=== PATIENT | male | born 1950 | race Caucasian/White ===

== ENCOUNTER → 2017-10-17 | Outpatient (CLI) | payer MEDICARE ==
--- NOTE | 2017-10-17 18:10 | XR ---
EXAMINATION TYPE: XR lumbar spine 2 or 3V DATE OF EXAM: 10/17/2017 COMPARISON: NONE HISTORY: Low back pain TECHNIQUE: 3 views FINDINGS: There are screws fusing anteriorly L5 and S1 vertebra. Vertebra have normal alignment. Ther e is anterior mild spurring. There is no compression fracture. Sacroiliac joints are intact. IMPRESSION: Previous surgery. No fracture seen. Mild spondylotic changes.
== END | disposition home or self-care (01) ==
LOC: RADXRMAIN 17:28
PROVIDERS: ATTEND Internal Medicine
DX: M47.816 Spondylosis without myelopathy or radiculopathy, lumbar region (principal); Z98.890 Other specified postprocedural states
CPT/HCPCS: 72100

== ENCOUNTER 2018-10-18 12:52 | Day surgery (SDC) | payer MEDICARE ==
[2018-10-16 11:05] VITALS: BMI 30.4
[~2018-10-18 12:52] MED LIST: LACTATED RINGERS 1,000 ML IV SCH; LIDOCAINE 1% 20 ML VIAL (10MG/ML) FOR IV START INTRADERMA PRN
[2018-10-18 13:15] VITALS: TEMP 97.1
[2018-10-18] MEDS ORDERED: LIDOCAINE 1% INJ 10MG/ML (20 ML MDV) ONE (13:57)
[2018-10-18] MEDS ORDERED: PROPOFOL 10 MG/ML 20 ML VIAL IV ONE (13:57)
--- NOTE | 2018-10-18 14:17 | P.PCN ---
Date of Procedure: 10/18/18 Procedure(s) Performed: BRIEF HISTORY: Patient is a 68-year-old pleasant white male, scheduled for an elective colonoscopy as a part of evaluation of prior history of colon polyps. Last colonoscopy was 5 years ago. PROCEDURE PERFORMED: Colonoscopy. PREOPERATIVE DIAGNOSIS: History of colon polyps. IV sedation per Anesthesia. PROCEDURE: After informed consent was obtained, the patient, was brought into the endoscopy unit. IV sedation was administered by Anesthesia under continuous monitoring. Digital rectal examination was normal. Initially the Olympus CF-160 flexible video colonoscope was then inserted in the rectum, gradually advanced into the cecum without any difficulty. Careful examination was performed as the scope was gradually being withdrawn. Ileocecal valve and the appendiceal orifice were visualized and appeared normal. Prep was excellent. Mucosa of the cecum, ascending colon, transverse colon, descending colon, sigmoid colon, and rectum appeared normal. Scattered sigmoidal diverticulosis. Retroflexion was performed in the rectum and no lesions were seen. The patient tolerated the procedure well. IMPRESSION: Normal-appearing colon from rectum to cecum with no evidence of colorectal neoplasia. Scattered sigmoid diverticulosis. RECOMMENDATIONS: Findings of this examination were discussed with the patient as well as his family. He was advised to have a repeat surveillance colonoscopy in 5 years from now because of the prior history of colon polyps.
[2018-10-18 14:51] VITALS: RESP 16
[2018-10-18 14:54] VITALS: BP 124/72; PULSE 50
== END 2018-10-18 15:13 | disposition home or self-care (01) ==
LOC: ORWHC2ENDO 12:52
PROVIDERS: ATTEND Internal Medicine Gastroenterology
DX: Z12.11 Encounter for screening for malignant neoplasm of colon (principal); Z86.010 Personal history of colon polyps; K57.30 Diverticulosis of large intestine without perforation or abscess without bleeding; E78.5 Hyperlipidemia, unspecified; G47.33 Obstructive sleep apnea (adult) (pediatric); Z87.891 Personal history of nicotine dependence; F39 Unspecified mood [affective] disorder; K21.9 Gastro-esophageal reflux disease without esophagitis; Z88.0 Allergy status to penicillin; Z79.51 Long term (current) use of inhaled steroids; Z79.899 Other long term (current) drug therapy
CPT/HCPCS: J2001; J2704; G0105; 45378

== ENCOUNTER → 2019-01-29 | Outpatient (CLI) | payer MEDICARE ==
--- NOTE | 2019-01-29 13:54 | XR ---
EXAMINATION TYPE: XR abdomen complete w decub DATE OF EXAM: 01/29/2019 CLINICAL HISTORY: Left upper quadrant pain for 1.5 days with nausea. TECHNIQUE: Supine upright, and left lateral decubitus views of the abdomen are obtained. COMPARISON: CT abdomen and pelvis March 04, 2009 FINDINGS: Scattered gas is seen in non-distended stomach and small bowel loops. Gas and fecal mater ial is seen in non-distended colon. Scattered pelvic phleboliths are present. There is surgical cat e in the lumbosacral junction. Lung bases are clear. No pneumoperitoneum. IMPRESSION: Overall nonobstructive bowel gas pattern.
== END | disposition home or self-care (01) ==
LOC: RADXRMAIN 12:19
PROVIDERS: ATTEND Internal Medicine
DX: K57.80 Diverticulitis of intestine, part unspecified, with perforation and abscess without bleeding (principal)
CPT/HCPCS: 74021

== ENCOUNTER 2019-01-31 17:47 | Inpatient (IN) | payer MEDICARE ==
--- NOTE | 2019-01-31 17:32 | CT ---
EXAMINATION TYPE: CT abdomen pelvis w con DATE OF EXAM: 01/31/2019 COMPARISON: 03/04/2009 HISTORY: abdominal pain, hx of diverticulitis CT DLP: 1307 mGycm Automated exposure control for dose reduction was used. CONTRAST: Performed with IV Contrast, patient injected with 100 mL of Isovue 300. Lung bases are clear. There is no pleural effusion. Heart size is normal. There is no pericardial eff usion. Liver spleen stomach pancreas gallbladder appear normal. Bile ducts are not dilated. There is no adrenal mass. Kidneys show satisfactory contrast opacification. There is no hydronephrosi s. Ureters are not dilated. There is no retroperitoneal adenopathy. Bladder distends smoothly. Prosta te is enlarged and measures 5.8 cm. There is no inguinal hernia. There is extensive fat stranding and wall thickening involving the MID sigmoid colon. There are numer ous sigmoid diverticula. There is disc surgery at L5-S1. There is right-sided L5 laminectomy. Vertebra have normal alignment. There is no compression fracture. Bony pelvis is intact. IMPRESSION: There is evidence of moderate sigmoid diverticulitis. This is a change compared to old exam. There is 2.5 cm area of inflammatory mass inferior to the sigmoid colon consistent with a phlegmon. No draina ble fluid collection.
[2019-01-31] MEDS ORDERED: HYDROmorphone 0.5 MG/0.5 ML SYRINGE IVP STA (18:10)
[2019-01-31] MEDS ORDERED: PANTOPRAZOLE 40 MG/10 ML VIAL IVP STA (18:10)
[2019-01-31] MEDS ORDERED: SODIUM CHLORIDE 0.9% 500 ML 500 ML IV STA (18:10)
[2019-01-31] MEDS ORDERED: SODIUM CHLORIDE 0.9% 1,000 ML IV STA (18:10)
--- NOTE | 2019-01-31 18:15 | ED ---
Abdominal Pain HPI - General Chief Complaint: Abdominal Pain Stated Complaint: Abd.pain-came from Ct Time Seen by Provider: 01/31/19 17:54 Source: patient, RN/MD, RN notes reviewed Mode of arrival: ambulatory Limitations: no limitations - History of Present Illness Initial Comments: This is a 68-year-old male who presents with complaints of lower mid abdominal pain. He currently is being treated outpatient with oral medications for diverticulitis. He is not getting better so his physician sent him here for a CAT scan. CAT scan was performed shows evidence of moderate sigmoid diverticulitis there is a 2.5 cm area of inflammatory mass inferior to the sigmoid colon consistent with a phlegmon no drainable fluid collection noted per the report. Patient does state upon my initial exam of the does have decreased pain about 4/10 compared to his entire pain earlier but does get worse with ambulation with movement. He this time denies any fevers chills nausea vomiting sweats no diarrhea. He does have ALLERGIES to penicillin no other modifying factors MD Complaint: abdominal pain - Related Data Home Medications Medication Instructions Recorded Confirmed ALPRAZolam 0.25 mg PO Q8HR PRN 09/09/13 10/18/18 buPROPion HCL [Bupropion HCl] 100 mg PO QAM 09/09/13 10/18/18 traZODone HCL [traZODone] 150 mg PO HS 09/09/13 10/18/18 Acetaminophen [Tylenol Arthritis] 1,300 mg PO BID 10/16/18 10/18/18 Fluticasone Nasal Mason [Flonase 2 spr EA NOSTRIL DAILY PRN 10/16/18 10/18/18 Nasal Mason] Allergies Allergy/AdvReac Type Severity Reaction Status Date / Time Penicillins Allergy Anaphylaxis Verified 01/31/19 18:34 sunflower seeds Allergy Anaphylaxis Uncoded 01/31/19 18:34 Review of Systems ROS Statement: Those systems with pertinent positive or pertinent negative responses have been documented in the HPI. ROS Other: All systems not noted in ROS Statement are negative. Past Medical History Past Medical History: GERD/Reflux, GI Bleed, Hyperlipidemia, Musculoskeletal Disorder, Sleep Apnea/CPAP/BIPAP Additional Past Medical History / Comment(s): hx of bleeding ulcers-surgical intervention with endoscopy in December 2012 and ICU admission- ulcers attributed to NSAIDS,DJD from. Lumbar to sacral area-pt gets injections. Cellulitis of his left fifth finger-healed History of Any Multi-Drug Resistant Organisms: None Reported Past Surgical History: Back Surgery, Orthopedic Surgery Additional Past Surgical History / Comment(s): 1977- laminectomy, carpal tunnel sx to b/l wrists, rt rotator cuff, right knee surgeryx2,L5-S1 fusion Past Anesthesia/Blood Transfusion Reactions: No Reported Reaction Past Psychological History: Anxiety Smoking Status: Former smoker Past Alcohol Use History: Occasional Past Drug Use History: None Reported - Past Family History Father Family Medical History: No Reported History Mother Family Medical History: No Reported History General Exam - General Exam Comments Initial Comments: This is a well-developed well-nourished awake alert oriented 3 male Limitations: no limitations General appearance: alert, anxious Head exam: Present: atraumatic, normocephalic, normal inspection Eye exam: Present: normal appearance, PERRL, EOMI. Absent: scleral icterus, conjunctival injection, periorbital swelling ENT exam: Present: normal exam, mucous membranes moist Neck exam: Present: normal inspection, full ROM. Absent: tenderness, meningismus, lymphadenopathy Respiratory exam: Present: normal lung sounds bilaterally. Absent: respiratory distress, wheezes, rales, rhonchi, stridor Cardiovascular Exam: Present: regular rate, normal rhythm, normal heart sounds. Absent: systolic murmur, diastolic murmur, rubs, gallop, clicks GI/Abdominal exam: Present: soft, tenderness (Tenderness over the mid lower abdomen no overt guarding or rebound at this time), normal bowel sounds. Absent: distended, guarding, rebound, rigid Extremities exam: Present: normal inspection, full ROM, normal capillary refill. Absent: tenderness, pedal edema, joint swelling, calf tenderness Back exam: Present: normal inspection Neurological exam: Present: alert, oriented X3, CN II-XII intact Psychiatric exam: Present: normal affect, normal mood Skin exam: Present: warm, dry, intact, normal color. Absent: rash Course Vital Signs 01/31/19 17:47 Temperature 98.9 F Pulse Rate 71 Respiratory 18 Rate Blood Pressure 145/91 O2 Sat by Pulse 99 Oximetry Medical Decision Making - Medical Decision Making I did review the imaging there is evidence of 2.5 cm area consistent with a phlegmon though apparently the verbal report could not rule out abscess. I had discussed the case with Dr. Beltrán also with Dr. cooper. Also with . Patient will be admitted place an IV antibiotics. He will be nothing by mouth. - Lab Data Result diagrams: 01/31/19 18:00 Lab Results 01/31/19 Range/Units 18:00 WBC 8.7 (3.8-10.6) k/uL RBC 4.97 (4.30-5.90) m/uL Hgb 16.2 (13.0-17.5) gm/dL Hct 46.4 (39.0-53.0) % MCV 93.5 (80.0-100.0) fL MCH 32.6 (25.0-35.0) pg MCHC 34.9 (31.0-37.0) g/dL RDW 11.9 (11.5-15.5) % Plt Count 205 (150-450) k/uL Neutrophils % 73 % Lymphocytes % 10 % Monocytes % 11 % Eosinophils % 1 % Basophils % 4 % Neutrophils # 6.4 (1.3-7.7) k/uL Lymphocytes # 0.9 L (1.0-4.8) k/uL Monocytes # 0.9 (0-1.0) k/uL Eosinophils # 0.1 (0-0.7) k/uL Basophils # 0.3 H (0-0.2) k/uL Disposition Clinical Impression: Diverticulitis large intestine, Phlegmon, Abdominal pain Disposition: ADMITTED IP TO THIS [facility] Condition: Fair Referrals: Genet Beltrán MD [Primary Care Provider] - 1-2 days
[2019-01-31 18:28] LABS: Basophils # (A) 0.3 k/uL (0-0.2); Basophils % (A) 4 %; Eosinophils # (A) 0.1 k/uL (0-0.7); Eosinophils % (A) 1 %; HCT 46.4 % (39.0-53.0); HGB 16.2 gm/dL (13.0-17.5); Lymphocytes # (A) 0.9 k/uL (1.0-4.8); Lymphocytes % (A) 10 %; MCH 32.6 pg (25.0-35.0); MCHC 34.9 g/dL (31.0-37.0); MCV 93.5 fL (80.0-100.0); Mean Platelet Volume 8.6; Monocytes # (A) 0.9 k/uL (0-1.0); Monocytes % (A) 11 %; Neutrophils # (A) 6.4 k/uL (1.3-7.7); Neutrophils % (A) 73 %; Platelet Count 205 k/uL (150-450); RBC 4.97 m/uL (4.30-5.90); RDW 11.9 % (11.5-15.5); WBC 8.7 k/uL (3.8-10.6)
[2019-01-31] MEDS ORDERED: ONDANSETRON 4 MG/2 ML VIAL IVP PRN (18:38)
[2019-01-31] MEDS ORDERED: NALOXONE 0.4 MG/ML 1 ML VIAL IV PRN (18:38)
[2019-01-31] MEDS ORDERED: LEVOFLOXACIN 750MG-D5W PMX 750 MG in DEXTROSE/WATER 1 150ML.BAG IVPB STA (18:41)
[2019-01-31 19:05] LABS: ALT 24 U/L (4-49); AST 48 U/L (17-59); African American GFR (CKD) >90 (>60 ml/min/1.73 sqM); Albumin 4.4 g/dL (3.5-5.0); Alkaline Phosphatase 83 U/L (38-126); Amylase 74 U/L (30-110); Anion Gap 11 mmol/L; Blood Urea Nitrogen 9 mg/dL (9-20); Calcium 9.7 mg/dL (8.4-10.2); Carbon Dioxide 23 mmol/L (22-30); Chloride 100 mmol/L (98-107); Creatine Kinase 202 U/L (55-170); Glucose 93 mg/dL (74-99); Non-African American GFR(CKD) >90 (>60 ml/min/1.73 sqM); Sodium 134 mmol/L (137-145); Total Bilirubin 1.3 mg/dL (0.2-1.3); Total Protein 8.1 g/dL (6.3-8.2)
[2019-01-31] MEDS: SODIUM CHLORIDE 0.9% 1,000 ML IV SCH (20:13)
[2019-01-31] MEDS: traZODone HCL 50 MG TAB PO SCH (23:11)
[2019-01-31] MEDS: metroNIDAZOLE-NS PMX 500 MG in SALINE 1 100ML.BAG IVPB SCH (23:55)
[2019-02-01] MEDS: HYDROmorphone 0.5 MG/0.5 ML SYRINGE IVP PRN ×3 (00:04→14:21)
[2019-02-01] MEDS: LORazepam 2 MG/ML INJ IV PRN (02:24)
[2019-02-01] MEDS: SODIUM CHLORIDE 0.9% 1,000 ML IV SCH ×3 (03:25→17:34)
[2019-02-01 04:15] LABS: Appearance,Urine Clear (Clear); Bilirubin,Urine Negative (Negative); Blood,Urine Negative (Negative); Color,Urine Yellow; Glucose,Urine (UA) Negative (Negative); Ketones,Urine Trace (Negative); Leukocyte Esterase,Urine Negative (Negative); Nitrite,Urine Negative (Negative); Protein,Urine Negative (Negative); Specific Gravity,Urine 1.021 (1.001-1.035); Urobilinogen,Urine <2.0 mg/dL (<2.0)
[2019-02-01] MEDS: metroNIDAZOLE-NS PMX 500 MG in SALINE 1 100ML.BAG IVPB SCH ×2 (08:50→15:45)
[2019-02-01] MEDS: buPROPion 100 MG TAB PO SCH (08:51)
[2019-02-01] MEDS: PANTOPRAZOLE 40 MG/10 ML VIAL IV SCH (08:51)
[2019-02-01] MEDS ORDERED: NON FORMULARY DRUG (Omeprazole Magnesium [Prilosec Otc] 20 MG) PO SCH (09:00)
--- NOTE | 2019-02-01 12:56 | P.HPIM ---
History of Present Illness H&P Date: 02/01/19 Chief Complaint: abdominal pain this is 68 years old male with past medical history significant for diverticulosis presented to the emergency department with abdominal pain. Patient described abdominal pain started 3 days ago located to the periumbilical area radiating to the lower quadrant left greater than right. Patient felt nauseous did not have any vomiting and denied any fever or chills and presented to the ER where computed tomography scan of the abdomen showed acute diverticulitis with phlegmon. Patient was started on IV antibiotics placed on the surgical floor and the general surgery consult was obtained. Patient stated that his been currently under fair control with the current the IV pain medication at denying nausea vomiting or abdominal pain. The patient stated that his improvement. At least 50% since last night and feels much better than presentation. Patient had the colonoscopy 15 years ago where it was positive for diverticulosis which was in remission until yesterday. The patient denied any weight loss night sweats or low-grade grade fever stated that he's up-to-date on his colonoscopy and had EGD in the past. Patient had a history of chronic back pain and stated that this pain is totally different than before. Patient is still passing flatus had small bowel movement yesterday without blood and stated that it's about the regular consistency for his irregular stool. Patient is denying tobacco alcohol or drug abuse stated that he's retired lives at home independently Review of Systems all 14 systems reviewed and negative except as above Past Medical History Past Medical History: GERD/Reflux, GI Bleed, Hyperlipidemia, Musculoskeletal Disorder, Sleep Apnea/CPAP/BIPAP Additional Past Medical History / Comment(s): hx of bleeding ulcers-surgical intervention with endoscopy in December 2012 and ICU admission- ulcers attr ibuted to NSAIDS,DJD from. Lumbar to sacral area-pt gets injections. Cellulitis of his left fifth finger-healed History of Any Multi-Drug Resistant Organisms: None Reported Past Surgical History: Back Surgery, Orthopedic Surgery Additional Past Surgical History / Comment(s): 1977- laminectomy, carpal tunnel sx to b/l wrists, rt rotator cuff, right knee surgeryx2,L5-S1 fusion Past Anesthesia/Blood Transfusion Reactions: No Reported Reaction Past Psychological History: Anxiety Additional Psychological History / Comment(s): Patient is lives with family home with his . 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 He does not have international travel as of late. No animals in the. home at this point in time. They do travel to [place] on an ongoing basis to visit their grandchildren. Stopped smoking 30 years ago. No history of her occasional drug use is related at this time. Smoking Status: Former smoker Past Alcohol Use History: Occasional Additional Past Alcohol Use History / Comment(s): quit smoking approx 38 yrs a go, smoked approx 8 yrs Past Drug Use History: None Reported - Past Family History Father Family Medical History: No Reported History Mother Family Medical History: No Reported History Medications and Allergies Home Medications Medication Instructions Recorded Confirmed Type ALPRAZolam 0.25 mg PO DAILY PRN 09/09/13 01/31/19 History buPROPion HCL [Bupropion HCl] 100 mg PO DAILY 09/09/13 01/31/19 History traZODone HCL [traZODone] 150 mg PO HS 09/09/13 01/31/19 History Ciprofloxacin HCl [Cipro] 500 mg PO BID 01/31/19 01/31/19 History Omeprazole Magnesium [PriLOSEC OTC] 20 mg PO DAILY 01/31/19 01/31/19 History metroNIDAZOLE [Flagyl] 500 mg PO TID 01/31/19 01/31/19 History Allergies Allergy/AdvReac Type Severity Reaction Status Date / Time Penicillins Allergy Anaphylaxis Verified 01/31/19 18:34 sunflower seeds Allergy Anaphylaxis Uncoded 01/31/19 18:34 Physical Exam Vitals: Vital Signs Temp Pulse Pulse Resp BP BP Pulse Ox 02/01/19 05:10 97.6 F 81 16 146/78 97 02/01/19 03:46 96.9 F L 01/31/19 21:08 100.2 F H 72 16 129/86 98 01/31/19 20:19 98.7 F 61 16 126/79 96 01/31/19 17:47 98.9 F 71 18 145/91 99 Intake and Output 01/31/19 02/01/19 02/01/19 22:59 06:59 14:59 Other: # Voids 2 1 Weight 89.358 kg Gen.: in stated age, no acute distress Heart: Normal S1-S2 Lungs: Clear to auscultation bilaterally Abdomen: Soft, positive for generalized tenderness worse in the periumbilical area without guarding and mild rebound Skin: No new rash Psych: Alert and oriented 3 Neuro: No focal deficit Results CBC & Chem 7: 01/31/19 18:00 01/31/19 18:00 Labs: Abnormal Lab Results - Last 24 Hours (Table) 01/31/19 01/31/19 02/01/19 Range/Units 18:00 18:00 03:30 Lymphocytes # 0.9 L (1.0-4.8) k/uL Basophils # 0.3 H (0-0.2) k/uL Sodium 134 L (137-145) mmol/L Creatine Kinase 202 H (55-170) U/L Urine Ketones Trace H (Negative) Thrombosis Risk Factor Assmnt - Choose All That Apply Each Factor Represents 1 point: Age 41-60 years Each Risk Factor Represents 2 Points: Age 61-74 years Other congenital or acquired thrombophilia - If yes, enter type in comment: No Thrombosis Risk Factor Assessment Total Risk Factor Score: 3 Thrombosis Risk Factor Assessment Level: Moderate Risk Assessment and Plan Assessment: 1. Acute diverticulitis with phlegmon. 2. Intractable abdominal pain with nausea no vomiting. 3. Hyponatremia. 4. Anxiety. 5. Chronic back pain. 6. GERD. Would continue current antibiotics, keep patient's nothing by mouth except for medication, anxiety medication discussed with the patient, we'll wait on surgery evaluation, increase diet per surgery recommendation, consider repeat study based on clinical progress. Plan discussed with patient and details
--- NOTE | 2019-02-01 14:27 | P.GSCN ---
History of Present Illness Consult date: 02/01/19 History of present illness: This is a 68-year-old male presents with a chief complaint of left lower quadrant abdominal pain. He had a normal bowel movement yesterday. He denies any blood in his stool. He denies any nausea vomiting. He's never had pain like this before. A computed tomography scan performed which was consistent with acute diverticulitis with phlegmon no drainable abscess. He states he's never had an episode of diverticulitis before in the past. He recently had a colonoscopy a little over a year ago with Dr. Pratt. He states that that revealed only diverticulosis at the time. He denies any fevers or chills. He states that his pain has slightly improved since his admission. It is controlled with pain medication at this time. Past Medical History Past Medical History: GERD/Reflux, GI Bleed, Hyperlipidemia, Musculoskeletal Disorder, Sleep Apnea/CPAP/BIPAP Additional Past Medical History / Comment(s): hx of bleeding ulcers-surgical intervention with endoscopy in December 2012 and ICU admission- ulcers attributed to NSAIDS,DJD from. Lumbar to sacral area-pt gets injections. Cellulitis of his left fifth finger-healed History of Any Multi-Drug Resistant Organisms: None Reported Past Surgical History: Back Surgery, Orthopedic Surgery Additional Past Surgical History / Comment(s): 1977- laminectomy, carpal tunnel sx to b/l wrists, rt rotator cuff, right knee surgeryx2,L5-S1 fusion Past Anesthesia/Blood Transfusion Reactions: No Reported Reaction Past Psychological History: Anxiety Additional Psychological History / Comment(s): Patient is lives with family home with his . 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 He does not have international travel as of late. No animals in the. home at this point in time. They do travel to [place] on an ongoing basis to visit their grandchildren. Stopped smoking 30 years ago. No history of her occasional drug use is related at this time. Smoking Status: Former smoker Past Alcohol Use History: Occasional Additional Past Alcohol Use History / Comment(s): quit smoking approx 38 yrs ago, smoked approx 8 yrs Past Drug Use History: None Reported - Past Family History Father Family Medical History: No Reported History Mother Family Medical History: No Reported History Medications and Allergies Home Medications Medication Instructions Recorded Confirmed Type ALPRAZolam 0.25 mg PO DAILY PRN 09/09/13 01/31/19 History buPROPion HCL [Bupropion HCl] 100 mg PO DAILY 09/09/13 01/31/19 History traZODone HCL [traZODone] 150 mg PO HS 09/09/13 01/31/19 History Ciprofloxacin HCl [Cipro] 500 mg PO BID 01/31/19 01/31/19 History Omeprazole Magnesium [PriLOSEC OTC] 20 mg PO DAILY 01/31/19 01/31/19 History metroNIDAZOLE [Flagyl] 500 mg PO TID 01/31/19 01/31/19 History Allergies Allergy/AdvReac Type Severity Reaction Status Date / Time Penicillins Allergy Anaphylaxis Verified 01/31/19 18:34 sunflower seeds Allergy Anaphylaxis Uncoded 01/31/19 18:34 Surgical - Exam Osteopathic Statement: *. No significant issues noted on an osteopathic structural exam other than those noted in the History and Physical/Consult. Vital Signs Temp Pulse Resp BP Pulse Ox 98.9 F 71 18 145/91 99 01/31/19 17:47 01/31/19 17:47 01/31/19 17:47 01/31/19 17:47 01/31/19 17:47 - General well developed, well nourished, no distress - Eyes PERRL - Neck trachea midline - Cardiovascular Rhythm: regular - Abdomen mild tenderness palpation in the left lower quadrant no rebound rigidity or guarding Abdomen: soft - Neurologic normal coordination, normal sensation - Psychiatric oriented to time, oriented to person, oriented to place Results - Labs 01/31/19 18:00 01/31/19 18:00 Abnormal Lab Results - Last 24 Hours (Table) 01/31/19 01/31/19 02/01/19 Range/Units 18:00 18:00 03:30 Lymphocytes # 0.9 L (1.0-4.8) k/uL Basophils # 0.3 H (0-0.2) k/uL Sodium 134 L (137-145) mmol/L Creatine Kinase 202 H (55-170) U/L Urine Ketones Trace H (Negative) Diabetes panel 01/31/19 Range/Units 18:00 Sodium 134 L (137-145) mmol/L Potassium 5.0 (3.5-5.1) mmol/L Chloride 100 (98-107) mmol/L Carbon Dioxide 23 (22-30) mmol/L BUN 9 (9-20) mg/dL Creatinine 0.83 (0.66-1.25) mg/dL Glucose 93 (74-99) mg/dL Calcium 9.7 (8.4-10.2) mg/dL AST 48 (17-59) U/L ALT 24 (4-49) U/L Alkaline Phosphatase 83 (38-126) U/L Total Protein 8.1 (6.3-8.2) g/dL Albumin 4.4 (3.5-5.0) g/dL Calcium panel 01/31/19 Range/Units 18:00 Calcium 9.7 (8.4-10.2) mg/dL Albumin 4.4 (3.5-5.0) g/dL Pituitary panel 01/31/19 Range/Units 18:00 Sodium 134 L (137-145) mmol/L Potassium 5.0 (3.5-5.1) mmol/L Chloride 100 (98-107) mmol/L Carbon Dioxide 23 (22-30) mmol/L BUN 9 (9-20) mg/dL Creatinine 0.83 (0.66-1.25) mg/dL Glucose 93 (74-99) mg/dL Calcium 9.7 (8.4-10.2) mg/dL Adrenal panel 01/31/19 Range/Units 18:00 Sodium 134 L (137-145) mmol/L Potassium 5.0 (3.5-5.1) mmol/L Chloride 100 (98-107) mmol/L Carbon Dioxide 23 (22-30) mmol/L BUN 9 (9-20) mg/dL Creatinine 0.83 (0.66-1.25) mg/dL Glucose 93 (74-99) mg/dL Calcium 9.7 (8.4-10.2) mg/dL Total Bilirubin 1.3 (0.2-1.3) mg/dL AST 48 (17-59) U/L ALT 24 (4-49) U/L Alkaline Phosphatase 83 (38-126) U/L Total Protein 8.1 (6.3-8.2) g/dL Albumin 4.4 (3.5-5.0) g/dL Assessment and Plan Assessment: acute diverticulitis Plan: patient does still have tenderness in his left lower quadrant. I recommend continuing bowel rest with nothing by mouth and IV antibiotics at this time. As patient continues to clinically improve diet can be advanced to clear liquids when his pain resolves. He did have a significant phlegmon however there was no abscess at this time. If the patient has worsening abdominal pain or increasing white count and fevers we could consider repeat computed tomography scan in several days to check for abscess formation. No plans for acute surgical intervention at this time.
[2019-02-01] MEDS: LEVOFLOXACIN 750MG-D5W PMX 750 MG in DEXTROSE/WATER 1 150ML.BAG IVPB SCH (17:31)
[2019-02-01] MEDS: traZODone HCL 50 MG TAB PO SCH (21:14)
[2019-02-01] MEDS: ENOXAPARIN 40 MG/0.4 ML SYRINGE SQ SCH (21:14)
[2019-02-02] MEDS: metroNIDAZOLE-NS PMX 500 MG in SALINE 1 100ML.BAG IVPB SCH ×4 (00:18→23:38)
[2019-02-02] MEDS: SODIUM CHLORIDE 0.9% 1,000 ML IV SCH ×3 (03:03→19:00)
[2019-02-02 07:33] LABS: Basophils % (A) 1 %; Eosinophils # (A) 0.1 k/uL (0-0.7); Eosinophils % (A) 3 %; HCT 38.9 % (39.0-53.0); HGB 13.3 gm/dL (13.0-17.5); Lymphocytes # (A) 0.9 k/uL (1.0-4.8); Lymphocytes % (A) 22 %; MCH 32.3 pg (25.0-35.0); MCHC 34.3 g/dL (31.0-37.0); MCV 94.4 fL (80.0-100.0); Mean Platelet Volume 8.2; Monocytes # (A) 0.5 k/uL (0-1.0); Monocytes % (A) 12 %; Neutrophils # (A) 2.5 k/uL (1.3-7.7); Neutrophils % (A) 59 %; Platelet Count 191 k/uL (150-450); RBC 4.12 m/uL (4.30-5.90); RDW 11.6 % (11.5-15.5); WBC 4.2 k/uL (3.8-10.6)
[2019-02-02 07:42] LABS: ALT 15 U/L (4-49); AST 27 U/L (17-59); African American GFR (CKD) >90 (>60 ml/min/1.73 sqM); Albumin 3.1 g/dL (3.5-5.0); Alkaline Phosphatase 58 U/L (38-126); Anion Gap 8 mmol/L; Blood Urea Nitrogen 11 mg/dL (9-20); Calcium 8.7 mg/dL (8.4-10.2); Carbon Dioxide 21 mmol/L (22-30); Chloride 107 mmol/L (98-107); Glucose 71 mg/dL (74-99); Non-African American GFR(CKD) >90 (>60 ml/min/1.73 sqM); Potassium 4.6 mmol/L (3.5-5.1); Sodium 136 mmol/L (137-145); Total Bilirubin 0.6 mg/dL (0.2-1.3); Total Protein 6.1 g/dL (6.3-8.2)
[2019-02-02] MEDS: PANTOPRAZOLE 40 MG/10 ML VIAL IV SCH (09:04)
[2019-02-02] MEDS: buPROPion 100 MG TAB PO SCH (09:04)
--- NOTE | 2019-02-02 12:11 | P.PN ---
Subjective Progress Note Date: 02/02/19 Principal diagnosis: diverticulitis patient continued to be hemodynamic a stable no major events reported by nursing staff. Patient is denying chest pain shortness breath nausea vomiting dumping dizziness lightheaded this or blurry vision. Patient reported resolution of his pain and stated that it's mild when pushing on the periumbilical area but no further need for pain medication requested by nursing staff. The patient is still nothing by mouth in no acute distress Objective - Vital Signs Vital signs: Vital Signs Temp 97.9 F 02/02/19 07:00 Pulse 75 02/02/19 07:00 Resp 18 02/02/19 07:00 BP 126/64 02/02/19 07:00 Pulse Ox 98 02/02/19 07:00 Intake & Output 02/01/19 02/02/19 02/02/19 18:59 06:59 18:59 Intake Total 0 Balance 0 Intake: Oral 0 Other: # Voids 3 2 - Exam Gen.: in stated age, no acute distress Heart: Normal S1-S2 Lungs: Clear to auscultation bilaterally Abdomen: Soft, improved tenderness in all quadrants still have some tenderness in the periumbilical and left lower quadrant with deep palpation, positive bowel sounds in all 4 quadrant no guarding or rebound Skin: No new rash Psych: Alert and oriented 3 Neuro: No focal deficit - Labs CBC & Chem 7: 02/02/19 06:50 02/02/19 06:50 Labs: Abnormal Lab Results - Last 24 Hours (Table) 02/02/19 02/02/19 Range/Units 06:50 06:50 RBC 4.12 L (4.30-5.90) m/uL Hct 38.9 L (39.0-53.0) % Lymphocytes # 0.9 L (1.0-4.8) k/uL Sodium 136 L (137-145) mmol/L Carbon Dioxide 21 L (22-30) mmol/L Glucose 71 L (74-99) mg/dL Total Protein 6.1 L (6.3-8.2) g/dL Albumin 3.1 L (3.5-5.0) g/dL Microbiology - Last 24 Hours (Table) 01/31/19 18:34 Blood Culture - Preliminary Blood No Growth after 24 hours Assessment and Plan Assessment: 1. Acute diverticulitis with phlegmon. 2. Intractable abdominal pain with nausea no vomiting. 3. Hyponatremia. 4. Anxiety. 5. Chronic back pain. 6. GERD. patient seems to be improving since yesterday. No pain medication administered in the last 12 hours. Patient is feeding hungry and I would like to introduce clear liquid diet. I would like to wait on general surgery evaluation regarding increasing his diet slowly and gradually. Repeat his electrolytes in the morning as his sodium 136 today area did continue gentle hydration with normal saline. Continue DVT prophylaxis. Continue current antibiotics. Discharge planning based on clinical progress
--- NOTE | 2019-02-02 14:31 | P.PN ---
Subjective Progress Note Date: 02/02/19 patient seen and examined. He's feeling much better today. His small bowel movement. He is tolerating his clears. No nausea vomiting no fevers chills Objective - Vital Signs Vital signs: Vital Signs Temp 97.9 F 02/02/19 07:00 Pulse 75 02/02/19 07:00 Resp 18 02/02/19 07:00 BP 126/64 02/02/19 07:00 Pulse Ox 98 02/02/19 07:00 Intake & Output 02/01/19 02/02/19 02/02/19 18:59 06:59 18:59 Intake Total 0 Balance 0 Intake: Oral 0 Other: # Voids 3 2 - Constitutional General appearance: Present: cooperative - Respiratory Details: nonlabored - Cardiovascular Rhythm: regular - Gastrointestinal Gastrointestinal Comment(s): S/NT/ND - Psychiatric Psychiatric: Present: A&O x's 3 - Labs CBC & Chem 7: 02/02/19 06:50 02/02/19 06:50 Labs: Abnormal Lab Results - Last 24 Hours (Table) 02/02/19 02/02/19 Range/Units 06:50 06:50 RBC 4.12 L (4.30-5.90) m/uL Hct 38.9 L (39.0-53.0) % Lymphocytes # 0.9 L (1.0-4.8) k/uL Sodium 136 L (137-145) mmol/L Carbon Dioxide 21 L (22-30) mmol/L Glucose 71 L (74-99) mg/dL Total Protein 6.1 L (6.3-8.2) g/dL Albumin 3.1 L (3.5-5.0) g/dL Microbiology - Last 24 Hours (Table) 01/31/19 18:34 Blood Culture - Preliminary Blood No Growth after 24 hours Assessment and Plan Assessment: acute diverticulitis Plan: continue IV antibiotics and clear liquid diet today. If patient continues to clinically improve he may advance to a soft diet tomorrow. No plans for acute surgical intervention
[2019-02-02] MEDS: LEVOFLOXACIN 750MG-D5W PMX 750 MG in DEXTROSE/WATER 1 150ML.BAG IVPB SCH (18:17)
[2019-02-02] MEDS: traZODone HCL 50 MG TAB PO SCH (22:00)
[2019-02-02] MEDS: ENOXAPARIN 40 MG/0.4 ML SYRINGE SQ SCH (22:00)
[2019-02-02] MEDS: LORazepam 2 MG/ML INJ IV PRN (22:05)
[2019-02-03] MEDS: SODIUM CHLORIDE 0.9% 1,000 ML IV SCH ×3 (03:09→17:45)
[2019-02-03 05:45] VITALS: RESP 18
[2019-02-03] MEDS: buPROPion 100 MG TAB PO SCH (08:57)
[2019-02-03] MEDS: PANTOPRAZOLE 40 MG/10 ML VIAL IV SCH (08:57)
[2019-02-03] MEDS: metroNIDAZOLE-NS PMX 500 MG in SALINE 1 100ML.BAG IVPB SCH ×3 (08:59→23:01)
[2019-02-03] MEDS ORDERED: ALPRAZolam 0.5 MG TAB PO PRN (15:13)
--- NOTE | 2019-02-03 16:12 | P.PN ---
Subjective Progress Note Date: 02/03/19 this is 68 years old male with past medical history significant for diverticulosis presented to the emergency department with abdominal pain. Patient described abdominal pain started 3 days ago located to the periumbilical area radiating to the lower quadrant left greater than right. Patient felt nauseous did not have any vomiting and denied any fever or chills and presented to the ER where computed tomography scan of the abdomen showed acute diverticulitis with phlegmon. Patient was started on IV antibiotics placed on the surgical floor and the general surgery consult was obtained. Patient stated that his been currently under fair control with the current the IV pain medication at denying nausea vomiting or abdominal pain. The patient stated that his improvement. At least 50% since last night and feels much better than presentation. Patient had the colonoscopy 15 years ago where it was positive for diverticulosis which was in remission until yesterday. The patient denied any weight loss night sweats or low-grade grade fever stated that he's up-to-date on his colonoscopy and had EGD in the past. Patient had a history of chronic back pain and stated that this pain is totally different than before. Patient is still passing flatus had small bowel movement yesterday without blood and stated that it's about the regular consistency for his irregular stool. Patient is denying tobacco alcohol or drug abuse stated that he's retired lives at home independently 02/03: Patient is doing better with abdominal pain, had increase in diet today which consisted of sandwich, patient felt bloated, no abdominal discomfort or pain, small bowel movement, no nausea, IV antibiotic still ongoing, Dr. cooper is on standby for general surgery with the plans for surgical intervention, patient is on IV metronidazole and by mouth Levaquin. When anticipating discharge in the morning should he continue to progress and improve. he has Cipro and Flagylfrom prior to admission which we can continue post discharge, he only had 2 doses of these antibiotics prior to admission.no leukocytosis no abnormal chemistries Objective - Vital Signs Vital signs: Vital Signs Temp 98.3 F 02/03/19 12:23 Pulse 62 02/03/19 12:23 Resp 18 02/03/19 12:23 BP 130/84 02/03/19 12:23 Pulse Ox 97 02/03/19 12:23 Intake & Output 02/02/19 02/03/19 02/03/19 18:59 06:59 18:59 Intake Total 540 1180 Balance 540 1180 Intake: Oral 540 1180 Other: Voiding Method Toilet # Voids 3 2 1 - Constitutional General appearance: Present: cooperative, no acute distress - EENT Eyes: Present: anicteric sclerae, EOMI, PERRLA, dentition normal, normal appearance ENT: Present: NA/AT, normal oropharynx - Neck Neck: Present: normal ROM - Respiratory Respiratory: bilateral: CTA, negative: diminished, dullness, rales, rhonchi - Cardiovascular Rhythm: regular Heart sounds: normal: S1, S2 Abnormal Heart Sounds: Absent: systolic murmur, diastolic murmur, rub, S3 Gallop, S4 Gallop, click, other - Gastrointestinal General gastrointestinal: Present: normal bowel sounds, soft - Integumentary Integumentary: Present: decreased turgor, normal - Neurologic Neurologic: Present: CNII-XII intact - Musculoskeletal Musculoskeletal: Present: gait normal, strength equal bilaterally - Psychiatric Psychiatric: Present: A&O x's 3, appropriate affect, intact judgment & insight - Labs CBC & Chem 7: 02/02/19 06:50 02/02/19 06:50 Labs: Microbiology - Last 24 Hours (Table) 01/31/19 18:34 Blood Culture - Preliminary Blood No Growth after 48 hours Assessment and Plan Plan: . Acute diverticulitis with phlegmon.clinically improving 2. Intractable abdominal pain with nausea no vomiting. 3. Hyponatremia resolved. 4. Anxiety. 5. Chronic back pain. 6. GERD. 7. Mild hypoalbuminemia, most likely secondary to nutritional deficit secondary to illness Would continue current antibiotics, advance diet as tolerated, anticipate discharge in the morning, no surgical intervention currently needed, low residue diet for the next 2 weeks, thereafter diverticular diet high fiber.
[2019-02-03] MEDS ORDERED: LEVOFLOXACIN 750 MG TAB PO SCH (18:00)
--- NOTE | 2019-02-03 19:12 | P.PN ---
Subjective Progress Note Date: 02/03/19 patient seen and examined. He's feeling much better today. having liquid bowel movements. He is tolerating his diet. No nausea vomiting no fevers chills Objective - Vital Signs Vital signs: Vital Signs Temp 98.3 F 02/03/19 12:23 Pulse 62 02/03/19 12:23 Resp 18 02/03/19 12:23 BP 130/84 02/03/19 12:23 Pulse Ox 97 02/03/19 12:23 Intake & Output 02/03/19 02/03/19 02/04/19 06:59 18:59 06:59 Intake Total 1580 Balance 1580 Intake: Oral 1580 Other: Voiding Method Toilet # Voids 2 2 - Constitutional General appearance: Present: cooperative - Respiratory Details: nonlabored - Cardiovascular Rhythm: regular - Gastrointestinal Gastrointestinal Comment(s): soft nontender nondistended - Psychiatric Psychiatric: Present: A&O x's 3 - Labs CBC & Chem 7: 02/02/19 06:50 02/02/19 06:50 Labs: Microbiology - Last 24 Hours (Table) 01/31/19 18:34 Blood Culture - Preliminary Blood No Growth after 48 hours Assessment and Plan Assessment: acute diverticulitis Plan: patient is feeling much better today. He is having liquid bowel movements. He is stable for discharge home tomorrow on oral antibiotics from surgical standpo int.he's had a recent colonoscopy which was normal. He may follow-up as needed if he continues to have recurrent diverticulitis.
[2019-02-03] MEDS: ENOXAPARIN 40 MG/0.4 ML SYRINGE SQ SCH (21:01)
[2019-02-03] MEDS: traZODone HCL 50 MG TAB PO SCH (21:01)
[2019-02-04] MEDS: LORazepam 2 MG/ML INJ IV PRN (02:44)
[2019-02-04] MEDS: SODIUM CHLORIDE 0.9% 1,000 ML IV SCH (03:27)
[2019-02-04 06:27] VITALS: BP 112/69; PULSE 65; TEMP 97.7
[2019-02-04] MEDS ORDERED: PANTOPRAZOLE 40 MG TABLET PO SCH (07:30)
[2019-02-04] MEDS: buPROPion 100 MG TAB PO SCH (08:02)
[2019-02-04] MEDS: metroNIDAZOLE-NS PMX 500 MG in SALINE 1 100ML.BAG IVPB SCH (08:02)
[2019-02-04 11:53] VITALS: BMI 29.9
--- NOTE | 2019-02-04 16:01 | P.DS ---
Providers Date of admission: 01/31/19 18:38 Expected date of discharge: 02/04/19 Attending physician: Denisse York Consults: 01/31/19 18:39 Consult Physician Routine Consulting Provider: Govind Reynoso Consult Reason/Comments: Diverticulitis with phlegmon Do you want consulting provider notified?: Already Contacted Primary care physician: [facility] Course: this is 68 years old male with past medical history significant for diverticulosis presented to the emergency department with abdominal pain. Patient described abdominal pain started 3 days ago located to the periumbilical area radiating to the lower quadrant left greater than right. Patient felt nauseous did not have any vomiting and denied any fever or chills and presented to the ER where computed tomography scan of the abdomen showed acute diverticulitis with phlegmon. Patient was started on IV antibiotics placed on the surgical floor and the general surgery consult was obtained. Patient stated that his been currently under fair control with the current the IV pain medication at denying nausea vomiting or abdominal pain. The patient stated that his improvement. At least 50% since last night and feels much better than presentation. Patient had the colonoscopy 15 years ago where it was positive for diverticulosis which was in remission until yesterday. The patient denied any weight loss night sweats or low-grade grade fever stated that he's up-to-date on his colonoscopy and had EGD in the past. Patient had a history of chronic back pain and stated that this pain is totally different than before. Patient is still passing flatus had small bowel movement yesterday without blood and stated that it's about the regular consistency for his irregular stool. Patient is denying tobacco alcohol or drug abuse stated that he's retired lives at home independently 02/03: Patient is doing better with abdominal pain, had increase in diet today which consisted of sandwich, patient felt bloated, no abdominal discomfort or pain, small bowel movement, no nausea, IV antibiotic still ongoing, Dr. reynoso is on standby for general surgery with the plans for surgical intervention, patient is on IV metronidazole and by mouth Levaquin. When anticipating discharge in the morning should he continue to progress and improve. he has Cipro and Flagylfrom prior to admission which we can continue post discharge, he only had 2 doses of these antibiotics prior to admission.no leukocytosis no abnormal chemistries 02/04: Abdominal pain did not come back, tolerating low-residue diet, dietitian consulted for home diverticular diet, patient denies any fever no chills, no abdominal cramps no melena and hematochezia, stable for discharge today, patient was counseled, no new problems GI-[facility] today. Hemoglobin 13.3 WBC count 4.2 liver function tests normal urinalysis normal final diagnosis Plan: .1 Acute diverticulitis with phlegmon. improved no perforation. Patient to start Cipro and Flagyl, to complete treatment 10 days on 02/10/2019 2. Intractable abdominal pain with nausea no vomiting. Improved 3. Hyponatremia resolved. 4. Anxiety. 5. Chronic back pain. 6. GERD. 7. Mild hypoalbuminemia, most likely secondary to nutritional deficit secondary to illness Discharge Medication List ALPRAZolam 0.25 mg PO DAILY PRN 09/09/13 [History] buPROPion HCL [Bupropion HCl] 100 mg PO DAILY 09/09/13 [History] traZODone HCL [traZODone] 150 mg PO HS 09/09/13 [History] Ciprofloxacin HCl [Cipro] 500 mg PO BID 01/31/19 [History] Omeprazole Magnesium [PriLOSEC OTC] 20 mg PO DAILY 01/31/19 [History] metroNIDAZOLE [Flagyl] 500 mg PO TID 01/31/19 [History] Patient Condition at Discharge: Fair Plan - Discharge Summary Discharge Rx Participant: No New Discharge Prescriptions: Continue traZODone HCL [traZODone] 150 mg PO HS ALPRAZolam 0.25 mg PO DAILY PRN PRN Reason: Anxiety buPROPion HCL [Bupropion HCl] 100 mg PO DAILY metroNIDAZOLE [Flagyl] 500 mg PO TID Ciprofloxacin HCl [Cipro] 500 mg PO BID Omeprazole Magnesium [PriLOSEC OTC] 20 mg PO DAILY Discharge Medication List ALPRAZolam 0.25 mg PO DAILY PRN 09/09/13 [History] buPROPion HCL [Bupropion HCl] 100 mg PO DAILY 09/09/13 [History] traZODone HCL [traZODone] 150 mg PO HS 09/09/13 [History] Ciprofloxacin HCl [Cipro] 500 mg PO BID 01/31/19 [History] Omeprazole Magnesium [PriLOSEC OTC] 20 mg PO DAILY 01/31/19 [History] metroNIDAZOLE [Flagyl] 500 mg PO TID 01/31/19 [History] Follow up Appointment(s)/Referral(s): Govind Reynoso DO [Doctor of Osteopathic Medicine] - 3 Weeks (Office is closed. Please call office for a follow up visit.) Genet Beltrán MD [Primary Care Provider] - 02/06/19 1:00 pm Patient Instructions/Handouts: Diverticulitis (DC) Activity/Diet/Wound Care/Special Instructions: NO NSAIDS Discharge Disposition: HOME SELF-CARE
== END 2019-02-04 14:24 | disposition home or self-care (01) | DRG 392 ==
LOC: EC 17:47 → 6NMEDSUR 18:38
PROVIDERS: ADMIT Internal Medicine; ATTEND Internal Medicine
DX: K57.20 Diverticulitis of large intestine with perforation and abscess without bleeding (principal); E87.1 Hypo-osmolality and hyponatremia; E88.09 Other disorders of plasma-protein metabolism, not elsewhere classified; E78.5 Hyperlipidemia, unspecified; F41.9 Anxiety disorder, unspecified; G89.29 Other chronic pain; K21.9 Gastro-esophageal reflux disease without esophagitis; G47.30 Sleep apnea, unspecified; M54.9 Dorsalgia, unspecified; M47.9 Spondylosis, unspecified; Z87.891 Personal history of nicotine dependence; Z87.11 Personal history of peptic ulcer disease; Z79.899 Other long term (current) drug therapy; Z91.018 Allergy to other foods; Z88.0 Allergy status to penicillin
CPT/HCPCS: 36415; 74177; 80053; 81003; 82150; 82550; 83605; 83690; 85025; 87040; 96361; 96365; 96375; 99285

== ENCOUNTER → 2019-08-27 | Outpatient (CLI) | payer MEDICARE | END | disposition home or self-care (01) | LOC: LABPAT 11:19 | PROVIDERS: ATTEND Orthopaedic Surgery | DX: Z01.812 Encounter for preprocedural laboratory examination (principal) | CPT/HCPCS: 87070 ==

== ENCOUNTER 2019-09-08 06:03 | Day surgery (SDC) | payer MEDICARE ==
[2019-09-04 09:48] VITALS: BMI 31.8
--- NOTE | 2019-09-07 11:21 | HP ---
HISTORY AND PHYSICAL DATE OF SURGERY: 09/08/2019 HISTORY OF PRESENT ILLNESS: Alan Reina is a 69-year-old patient seen with progressive symptomatic right knee osteoarthritis. We discussed options for treatment. He elected to proceed with right total knee arthroplasty. Consent regarding the procedure was obtained. Clearance was provided by Dr. Beltrán. PAST MEDICAL HISTORY: Gastroesophageal reflux disease. PAST SURGICAL HISTORY: Right knee arthroscopy. DAILY MEDICATIONS: Alprazolam, bupropion, omeprazole. ALLERGIES: PENICILLIN. SOCIAL HISTORY: Denies tobacco use. PHYSICAL EXAMINATION: Evaluation right knee, his range of motion 0-125. He has a mild effusion. Tenderness medial joint line. Crepitus medial patellofemoral compartments with range of motion. Pain with patellofemoral compression. Ligaments stable. Hip rotation without pain. Distal neurovascular exam is intact. RADIOGRAPHS: Radiographs of the right knee reveal severe osteoarthritic changes. IMPRESSION: 1. Right knee osteoarthritis. 2. Hypertension. 3. Gastroesophageal reflux disease. PLAN: Right total knee arthroplasty. MMODL / IJN: [id number] /
[~2019-09-08 06:03] MED LIST changes: +ACETAMINOPHEN TAB 500 MG TAB PO ONE; +CLINDAMYCIN 900 MG in DEXTROSE 5% IN WATER 50 ML IVPB ONE; -LACTATED RINGERS 1,000 ML IV SCH; -LIDOCAINE 1% 20 ML VIAL (10MG/ML) FOR IV START INTRADERMA PRN; +MELOXICAM 7.5 MG TAB PO ONE; +ROPIVACAINE 246.25 MG, EPINEPHrine 0.5 MG, KETOROLAC 30 MG, cloNIDine HCL/PF 80 MCG, WA... MISCELLANE ONE; +TRANEXAMIC ACID 1,000 MG in SODIUM CHLORIDE 0.9% 100 ML IVPB ONE
[2019-09-08] MEDS ORDERED: ONDANSETRON 4 MG/2 ML VIAL IVP ONE (06:08)
[2019-09-08] MEDS ORDERED: LACTATED RINGERS 1,000 ML IV SCH (06:08)
[2019-09-08] MEDS ORDERED: LIDOCAINE 1% (10MG/ML) FOR IV START INTRADERMA PRN (06:08)
[2019-09-08] MEDS ORDERED: DEXAMETHASONE SOD PHOSPHATE 10 MG/ML 1 ML VIAL IV ONE (06:08)
[2019-09-08] MEDS ORDERED: ONDANSETRON 4 MG/2 ML VIAL ONE (06:38)
[2019-09-08] MEDS ORDERED: ACETAMINOPHEN TAB 500 MG TAB ONE (06:38)
[2019-09-08] MEDS ORDERED: MIDAZOLAM 2 MG/2 ML VIAL IV ONE (07:04)
[2019-09-08] MEDS ORDERED: HYDROmorphone (PF) 1 MG/ML ONE (07:29)
[2019-09-08] MEDS ORDERED: SODIUM CHLORIDE 0.9% 100 ML BAG ONE (07:29)
[2019-09-08] MEDS ORDERED: LIDOCAINE 1% INJ 10MG/ML (20 ML MDV) ONE (07:29)
[2019-09-08] MEDS ORDERED: TRANEXAMIC ACID 1,000 MG/10 ML VIAL ONE (07:29)
[2019-09-08] MEDS ORDERED: MIDAZOLAM 2 MG/2 ML VIAL ONE (07:29)
[2019-09-08] MEDS ORDERED: PROPOFOL 10 MG/ML 20 ML VIAL IV ONE (07:29)
[2019-09-08] MEDS ORDERED: fentaNYL (PF) 50 MCG/ML 2 ML AMP ONE (07:29)
[2019-09-08] MEDS ORDERED: CLINDAMYCIN 1,800 MG in SODIUM CHLORIDE 0.9% IRRIGATIO 3,000 ML IRRIGATION ONE (08:00)
[2019-09-08] MEDS ORDERED: ceFAZolin 3,000 MG in SODIUM CHLORIDE 0.9% IRRIGATIO 3,000 ML IRRIGATION ONE (08:06)
[2019-09-08] MEDS ORDERED: ROPIVACAINE 0.2%-NS ON-Q PUMP 1,090 MG, EMPTY PAIN BALL 1 EACH MISCELLANE PRN (08:59)
--- NOTE | 2019-09-08 09:01 | P.ANPRN ---
Procedure Note - Anesthesia - Nerve Block Performed Right Adductor Canal Infusion Time Out Performed: Yes Date of Procedure: 09/08/19 Procedure Start Time: 07:05 Procedure Stop Time: 07:17 Location of Patient: PreOp Indication: Acute Post-Operative Pain, Requested by Surgeon Sedation Type: Sedate with meaningful contact maintained Preparation: Sterile Prep, Sterile Dressing Position: Supine Catheter: Indwelling Needle Types: Pajunk Needle Gauge: 18 Ultrasound used to visualize needle placement: Yes Ultrasound used to observe medication spread: Yes Injectate: 0.5% Ropivacaine (see comment for volume) (20 ml) Blood Aspirated: No Pain Paresthesia on Injection Noted: No Resistance on Injection: Normal
--- NOTE | 2019-09-08 09:24 | P.OP ---
Date of Procedure: 09/08/19 Preoperative Diagnosis: Right knee osteoarthritis Postoperative Diagnosis: Right knee osteoarthritis Procedure(s) Performed: Right total knee arthroplasty Implants: 1. Depuy attune size 6 right cruciate retaining cemented femur 2. Depuy attune size 7 fixed bearing cemented tibial baseplate 3. Depuy attune size 6 fixed bearing cruciate retaining 12 mm polyethylene tibial insert 4. Depuy attune 41 mm all polyethylene cemented patella Anesthesia: GETA, regional (Adductor canal catheter) Surgeon: Josesito Schultz X Ray Service Technician #1: Singh Natarajan Estimated Blood Loss (ml): 40 Pathology: other (Bone) Condition: stable Disposition: PACU Indications for Procedure: 69-year-old patient seen with symptomatic right knee osteoarthritis. After treatment options were discussed, he elected to proceed with total knee arthroplasty. Operative Findings: See description of procedure Description of Procedure: Patient was taken to the operative suite after having an adductor canal catheter placed by the department of anesthesia. Patient underwent a general anesthetic by the department of anesthesia. Patient was given preoperative IV intake antibiotics and TXA. A well-padded tourniquet was placed about the right lower extremity. The lower extremity was then prepped and draped in the normal sterile orthopedic fashion. The extremity was elevated, a tourniquet was insufflated to 300. A standard anterior incision was made sharply through skin. Dissection was taken down through the subcutaneous soft tissues down to the extensor mechanism. A medial arthrotomy was performed, patella was everted and knee was flexed. There was advanced osteoarthritis noted. I introduced my distal intramedullary femoral drill. I then introduced the distal femoral cutting jig. Sol[employer] BHAKTA secured the cutting jig with 2 pins. I held retractors in position while Sol[employer] BHAKTA performed the distal femoral resection through the guide area we now removed her distal femoral cutting guide. We now placed our 4-in-1 femoral cutting block and positioned and it was secured with 2 pins by Solis BHAKTA while I held the block in position. The distal femoral finishing was now completed. A proximal tibial cutting guide was positioned. I held the guide in the appropriate position with both hands well Solis BHAKTA inserted stabilizing pins into the guide. Proximal tibial cut was made. We now placed a trial femoral component into position, along with an appropriate size tibial tray and insert. We now took the knee through range of motion and had full extension good flexion and good overall soft tissue balance noted. The patella was everted and stabilized with 2 towel clips held by Solis BHAKTA while I performed a flush with patellar quad tendon utilizing a fresh sawblade. We templated the patella, appropriate drill holes were made. An appropriate trial patella was positioned, knee was taken through full range of motion with the patella tracking very nicely. The trial patella was removed. Drill holes were made through the femoral component. All trial components were removed after marking off the appropriate rotation of the tibia. Retractors were now positioned along the proximal tibia. An appropriate keel punch was made with the appropriate size tibial guide by myself on Solis BHAKTA assisted by holding retractors. At this point appropriate size implants were chosen and opened. The joint was irrigated copiously with pulse lavage mechanical irrigation. The posterior capsule was infiltrated with local analgesic. The wound was irrigated with pulse lavage mechanical irrigation. We mixed antibiotic methylmethacrylate. We placed the knee into flexion. We placed multiple retractors assisted by Solis BHAKTA to expose the proximal tibia. Once the methyl methacrylate was ready, the tibial component was cemented into place removing any excess methylmethacrylate form by both myself and Solis BHAKTA. The femoral component was cemented into place removing the removing any excess methylmethacrylate performed by both myself and Solis BHAKTA. We then inserted the appropriate size polyethylene tibial insert. We made sure that it was locked into position. We took the knee into full extension, and then back in a flexion making sure we had removed any excess methylmethacrylate. The patellar component was then cemented down and secured with clamp. Excess methylmethacrylate removed. We kept the knee in full extension, patellar clamp in position until methylmethacrylate had hardened. Once it had hardened the patellar clamp was removed. The knee was taken through full range of motion. The patella tracked nicely. There was good soft tissue balancing. The tourniquet was now released. Additional hemostasis was achieved via electrocautery. A second gram of TXA was given. The wound again was irrigated with pulse lavage mechanical irrigation. The superficial soft tissues were infiltrated local analgesic. The extensor mechanism was repaired with Vicryl. We checked the repair with range of motion and it was stable. The subcutaneous soft tissues were repaired with Vicryl in layers. The skin was approximated with pernio/Dermabond. Sterile dressings were applied followed by loose web roll and Lam bandage. The patient was transferred to a bed, and taken to recovery in stable and satisfactory condition. Solis BHAKTA assisted with this complex procedure.
[2019-09-08] MEDS ORDERED: LACTATED RINGERS 1,000 ML IV ONE ×2 (09:25→10:37)
[2019-09-08] MEDS ORDERED: HYDROmorphone 0.5 MG/0.5 ML SYRINGE IVP PRN ×3 (09:25)
[2019-09-08] MEDS ORDERED: HYDROcodone/APAP 7.5-325MG 1 EACH TAB PO PRN (09:25)
[2019-09-08] MEDS ORDERED: NALOXONE 0.4 MG/ML 1 ML VIAL IV PRN (09:25)
[2019-09-08] MEDS ORDERED: HYDROcodone/APAP 5-325MG 1 EACH TAB PO PRN (09:25)
[2019-09-08] MEDS ORDERED: ONDANSETRON 4 MG/2 ML VIAL IVP PRN (09:25)
[2019-09-08 09:53] VITALS: TEMP 97.6
[2019-09-08] MEDS: HYDROmorphone 0.5 MG/0.5 ML SYRINGE IVP PRN ×2 (10:00→10:17)
--- NOTE | 2019-09-08 10:20 | XR ---
EXAMINATION TYPE: XR knee limited RT DATE OF EXAM: 09/08/2019 COMPARISON: None HISTORY: Postop right knee replacement TECHNIQUE: Two view right knee FINDINGS: Tibial and femoral components are in place. No fractures or postsurgical change or soft tis ashutosh IMPRESSION: 1. No acute fracture post knee replacement.
[2019-09-08 10:26] VITALS: RESP 16
[2019-09-08] MEDS ORDERED: HYDROcodone/APAP 7.5-325MG 1 EACH TAB ONE (11:51)
[2019-09-08] MEDS ORDERED: HYDROcodone/APAP 7.5-325MG 1 EACH TAB PO ONE (11:54)
[2019-09-08] MEDS ORDERED: CLINDAMYCIN 900 MG in DEXTROSE 5% IN WATER 50 ML IVPB ONE ×2 (12:00)
[2019-09-08 13:43] VITALS: BP 124/76; PULSE 69
== END 2019-09-08 14:04 | disposition home health service (06) ==
LOC: OR 06:03
PROVIDERS: ATTEND Orthopaedic Surgery
DX: M17.11 Unilateral primary osteoarthritis, right knee (principal); I10 Essential (primary) hypertension; G47.33 Obstructive sleep apnea (adult) (pediatric); K21.9 Gastro-esophageal reflux disease without esophagitis; F41.9 Anxiety disorder, unspecified; F32.9 Major depressive disorder, single episode, unspecified; G47.00 Insomnia, unspecified; Z87.19 Personal history of other diseases of the digestive system; Z88.0 Allergy status to penicillin; Z91.09 Other allergy status, other than to drugs and biological substances; Z79.899 Other long term (current) drug therapy; Z98.890 Other specified postprocedural states
CPT/HCPCS: 97116; 97161; 64448; 76942; 73560; 27447; C1776; C1713; J2250; J0171; J1100; J2405; J2001; J3010; J1885; J1170 ×2; J2795 ×2; J2704; J0735; 88300

== ENCOUNTER → 2020-03-16 | Outpatient (CLI) | payer MEDICARE ==
--- NOTE | 2020-03-16 14:08 | P.SLEEP ---
History of Present Illness H&P Date: 03/16/20 this is a pleasant 70-year-old here patient is coming to establish himself again at our sleep center regarding his obstructive sleep apnea. He is a long-term CPAP user. He was diagnosed having obstructive sleep apnea many years back and the patient was given a Respironics Cheema CPAP unit which is adjusted at a CPAP pressure of 9 cm of water. Over the past 8-9 years, no further adjustments as been done to his CPAP pressure. Is utilizing the machine at the same level of pressure. He is using a jewell LT nasal pillows. His been very compliant and based on the compliance data that was collected over the past 30 days, the patient has been averaging about 7 hours and 54 minutes of CPAP use per night and his CPAP use for more than 4 hours is at 100%. Nevertheless, based on the alternation of his CPAP unit, I'm unable to confirm the efficacy of the treatment and a recording of it AHI while on CPAP therapy could not be established. The patient has no snoring. Denies having any apneas and no grinding of the teeth. No sleepwalking. No sleep talking. No restlessness in lower extremities. Denies waking up in the middle of night gasping for air. No palpitation. No heartburn. His machine is becoming noisy and at times it turns off without any warnings. He is going to bed around 11:45 PM and wakes at 7 AM in the morning. Is averaging about 7-8 hours of sleep. He takes trazodone 150 mg at bedtime and he takes bupropion 50 mg 2 tablets in the morning. No major anxiety. No major depression. No recent weight gain or weight loss. Drinks 3 cups of coffee in the morning. Does not take any naps during the day. Sleeps on his side and back and he prefers his sites. He does have a positive family history for obstructive sleep apnea. No recent heart attack. No congestion heart failure. No Hx fibrillation. Review of Systems Constitutional: Denies chills, Denies fever Eyes: denies as per HPI, denies blurred vision, denies bulging eye, denies decreased vision, denies diplopia, denies discharge, denies dry eye, denies irritation, denies itching, denies pain, denies photophobia, denies loss of peripheral vision, denies loss of vision, denies tunnel vision/blind spots Ears: deny: decreased hearing, ear discharge, earache, tinnitus Ears, nose, mouth and throat: Denies headache, Denies sore throat Breasts: absent: as per HPI, gynecomastia Cardiovascular: Denies chest pain, Denies shortness of breath Respiratory: Reports sleep apnea Gastrointestinal: Denies abdominal pain, Denies diarrhea, Denies nausea, Denies vomiting Genitourinary: Reports as per HPI Musculoskeletal: Reports low back pain Musculoskeletal: absent: ankle pain, ankle stiffness, ankle swelling Integumentary: Reports as per HPI Neurological: Reports as per HPI Psychiatric: Reports as per HPI Endocrine: Reports as per HPI Hematologic/Lymphatic: Reports as per HPI Allergic/Immunologic: Reports as per HPI Past Medical History Past Medical History: GERD/Reflux, GI Bleed, Hyperlipidemia, Musculoskeletal Disorder, Sleep Apnea/CPAP/BIPAP Additional Past Medical History / Comment(s): Obstructive sleep apnea, history of diverticulosis and previous history of diverticulosis/diverticulitis, previous history of GI bleed, hyperlipidemia, acid reflux, osteoarthritis and previous knee surgery, previous history of bleeding peptic ulcer related to nonsteroidal and supplemental medication requiring endoscopy in December 2012, history of chronic back pain with previous lumbar spine injections with steroids, history of cellulitis of the left fifth finger. History of Any Multi-Drug Resistant Organisms: None Reported Past Surgical History: Back Surgery, Orthopedic Surgery Additional Past Surgical History / Comment(s): 1978- laminectomy, carpal tunnel sx to b/l wrists, rt rotator cuff, right knee surgeryx2,lumbar/sacral spine L5- S1 fusion Past Anesthesia/Blood Transfusion Reactions: No Reported Reaction Past Psychological History: Anxiety Past Alcohol Use History: Occasional Additional Past Alcohol Use History / Comment(s): quit smoking approx 38 yrs ago, smoked approx 8 yrs Past Drug Use History: None Reported - Past Family History Father Family Medical History: No Reported History Mother Family Medical History: No Reported History Medications and Allergies Home Medications Medication Instructions Recorded Confirmed Type ALPRAZolam 0.25 mg PO DAILY PRN 09/09/13 09/04/19 History buPROPion HCL [Bupropion HCl] 100 mg PO DAILY 09/09/13 09/04/19 History traZODone HCL [traZODone] 150 mg PO HS 09/09/13 09/04/19 History Omeprazole Magnesium [PriLOSEC OTC] 20 mg PO DAILY 01/31/19 09/04/19 History Docusate [Colace] 100 mg PO DAILY #30 capsule 09/08/19 Rx Enoxaparin [Lovenox] 40 mg SQ DAILY #14 syringe 09/08/19 Rx HYDROcodone/APAP 7.5-325MG [[place] 1 - 2 each PO Q6HR PRN #40 tab 09/08/19 Rx 7.5] traMADol HCl [Ultram] 50 mg PO Q6H PRN #28 tab 09/08/19 Rx Allergies Allergy/AdvReac Type Severity Reaction Status Date / Time Penicillins Allergy Anaphylaxis Verified 09/04/19 09:24 sunflower seeds Allergy Anaphylaxis Uncoded 09/04/19 09:24 Physical Exam The patient appeared well nourished and normally developed. Vital signs as documented. Head exam is unremarkable. No scleral icterus or corneal arcus noted. Neck is without jugular venous distension, thyromegaly, or carotid bruits. Carotid upstrokes are brisk bilaterally.. The patient is a Mallampati class IV and significant crowding of the posterior pharynx is also seen. Lungs are clear to auscultation and percussion. Cardiac exam reveals the PMI to be normally sized and situated. Rhythm is regular. First and second heart sounds normal. No murmurs, rubs or gallops. Abdominal exam reveals normal bowel sounds, no masses, no organomegaly and no aortic enlargement. Extremities are nonedematous and both femoral and pedal pulses are normal.Examination of the skin revealed no evidence of significant rashes, suspicious appearing nevi or other concerning lesions.Neurologically, the patient is awake and alert and the patient does not have any focal neurological deficit. Cranial nerves are essentially intact. Assessment and Plan Plan: 1 obstructive sleep apnea. The patient has an established diagnosis of obstructive sleep apnea more than 8 or 9 years ago and the patient is currently utilizing a malfunctioning CPAP unit which is a Respironic Cheema unit, older generation, set at a pressure of 9 cm of water. The machine is malfunctioning and the patient wants to update his machine. As such, he needs to be established diagnoses of sleep apnea and its severity and proceed with treatment accordingly. he has a very compliant to CPAP unit based on the compliance to check that was done today. He is also using a jewell LT nasal mask, a pillow. 2 chronic hypersomnia, currently Zapata score at 6 3 history of chronic anxiety currently maintained on a combination of bupropion and trazodone 4 osteoarthritis 5 chronic back pain with previous lumbar spine surgery including laminectomy and fusion 6 history of diverticulosis and previous history of diverticulitis Plan We'll proceed with a home sleep study testing to establish the presence and severity of obstructive sleep apnea once diagnosis established, we will be able to update us patient's CPAP unit to a newer generation APAP Continue trazodone and the bupropion at the same doses Adequate sleep hygiene measures Adequate pain control we'll see me back in the sleep center after obtaining a CPAP unit for a compliance he check. Meanwhile, I took the opportunity to update his CPAP mask and I offered them the dreamware under the nose large size nasal mask. We'll continue to follow. Sleep Note - Sleep Data Previous Sleep Study: Yes PAP Device: CPAP - Sleep Note Sleep Note: Temperature: 97 .7 Pulse Rate: 69 Respiratory Rate: Michael Blood Pressure: 123/81 SpO2: 97% Height: 5 feet 8 inches Weight: 2 15 pounds BMI: 32.9 Neck Circumference: 17 inches
== END | disposition home or self-care (01) ==
LOC: SLEEP 13:40
PROVIDERS: ATTEND Internal Medicine Critical Care Medicine
DX: G47.33 Obstructive sleep apnea (adult) (pediatric) (principal); F41.9 Anxiety disorder, unspecified; M19.90 Unspecified osteoarthritis, unspecified site; K57.90 Diverticulosis of intestine, part unspecified, without perforation or abscess without bleeding; Z87.19 Personal history of other diseases of the digestive system; Z99.89 Dependence on other enabling machines and devices; Z79.899 Other long term (current) drug therapy; Z79.891 Long term (current) use of opiate analgesic; Z88.0 Allergy status to penicillin; Z91.018 Allergy to other foods
CPT/HCPCS: 99211

== ENCOUNTER → 2020-05-21 | Outpatient (CLI) | payer MEDICARE ==
--- NOTE | 2020-05-21 15:03 | XR ---
EXAMINATION TYPE: XR lumbar spine 2 or 3V DATE OF EXAM: 05/21/2020 Comparison: 10/17/2017 Clinical History: 70-year-old male low back pain, M47.16 Findings: 5 lumbar type vertebral bodies. L5-S1 anterior interbody fusion changes are demonstrated. Hypertrophi c facet arthropathy lower lumbar spine. Mild to moderate endplate spondylosis throughout with variabl e mild disc space narrowing. More moderate degenerative disc disease seen at T11-T12. Impression: Unchanged appearance to the L5-S1 anterior and interbody fusion. Redemonstrated facet arthropathy mid to lower lumbar spine and mild to moderate endplate spondylosis throughout. No vertebral compression collapse or malalignment.
== END | disposition home or self-care (01) ==
LOC: RADXRMAIN 10:36
PROVIDERS: ATTEND Internal Medicine
DX: M47.816 Spondylosis without myelopathy or radiculopathy, lumbar region (principal); Z98.1 Arthrodesis status
CPT/HCPCS: 72100

== ENCOUNTER → 2020-07-09 | Outpatient (CLI) | payer MEDICARE ==
--- NOTE | 2020-07-10 14:29 | MR ---
EXAMINATION TYPE: MR lumbar spine wo/w con DATE OF EXAM: 07/09/2020 COMPARISON: Plain film 05/21/2020 HISTORY: LBP, LLE radiculopathy. Prior surgery 2014. TECHNIQUE: Multiplanar, multisequence images of the lumbar spine were acquired utilizing 10 mL intravenous Gadav ist gadolinium contrast. L1-L2: Normal disc appearance without desiccation. No herniation, protrusion or disc bulging. No ca nal stenosis is present. Foramina are patent bilaterally. L2-L3: There is significant spinal stenosis, severe due to posterior extension endplate disc complex, there is facet arthropathy with hypertrophy ligamentum flavum, circumferential extension endplate di sc complex results in bilateral foraminal encroachment. L3-L4: Posterior broad-based disc bulge causes minimal anterior mass effect on the thecal sac, facet arthropathy with hypertrophy ligamentum flavum causes some posterior lateral mass effect on the theca l sac. Circumferential extension endplate disc complex causes only minimal foraminal encroachment on the inferior margins of the foramina. L4-L5: Facet arthropathy with hypertrophy of the ligamentum flavum causes some posterior lateral mass effect on the thecal sac, circumferential posterior disc bulge causes anterior mass effect on the th ecal sac somewhat eccentric towards the left, circumferential extension endplate disc complex encroac hes on the foramina. Only mild spinal stenosis. L5-S1: Circumferential extension endplate disc complex encroaches somewhat on the foramen greater on the right, there is laminectomy change, posterior heart disc extension may contact the proximal S1 ne rve roots, there is facet arthropathy change Lumbar segments are intact. No paraspinal masses are identified. Conus medullaris has a normal appe arance. Lumbar vertebral bodies show preserved height and alignment. There is multilevel spondylosis with endplate discogenic marrow signal change. Intervertebral spacing unit is present at L5-S1. There is some local endplate marrow signal change, is artifact. Loss of disc height and signal is present at L2-3, is associated vacuum phenomenon, endplate Schmorl's node formation inferior L2. No abnormal enhancement following contrast administration. IMPRESSION: Degenerative disc disease with spinal stenosis greatest at L2-3. Multilevel facet arthropathy, forami nal encroachment, postop change.
== END | disposition home or self-care (01) ==
LOC: RADMRIMAIN 18:07
PROVIDERS: ATTEND Internal Medicine
DX: M51.16 Intervertebral disc disorders with radiculopathy, lumbar region (principal); M48.061 Spinal stenosis, lumbar region without neurogenic claudication; M47.26 Other spondylosis with radiculopathy, lumbar region; M99.73 Connective tissue and disc stenosis of intervertebral foramina of lumbar region
CPT/HCPCS: 72158; A9585

== ENCOUNTER → 2020-08-18 | Outpatient (CLI) | payer MEDICARE ==
[2020-08-18 13:31] VITALS: BP 128/88; PULSE 80; RESP 18; TEMP 98.5
== END | disposition home or self-care (01) ==
LOC: PNWHC3 13:10
PROVIDERS: ATTEND Specialist
DX: M51.06 Intervertebral disc disorders with myelopathy, lumbar region (principal); M54.16 Radiculopathy, lumbar region; M47.816 Spondylosis without myelopathy or radiculopathy, lumbar region; M46.96 Unspecified inflammatory spondylopathy, lumbar region; Z98.890 Other specified postprocedural states
CPT/HCPCS: 99211

== ENCOUNTER 2020-09-07 13:24 | Day surgery (SDC) | payer MEDICARE ==
[2020-09-03 15:48] VITALS: BMI 31.1
[~2020-09-07 13:24] MED LIST changes: -ACETAMINOPHEN TAB 500 MG TAB PO ONE; -CLINDAMYCIN 900 MG in DEXTROSE 5% IN WATER 50 ML IVPB ONE; +LACTATED RINGERS 1,000 ML IV SCH; -MELOXICAM 7.5 MG TAB PO ONE; -ROPIVACAINE 246.25 MG, EPINEPHrine 0.5 MG, KETOROLAC 30 MG, cloNIDine HCL/PF 80 MCG, WA... MISCELLANE ONE; -TRANEXAMIC ACID 1,000 MG in SODIUM CHLORIDE 0.9% 100 ML IVPB ONE
[2020-09-07 13:45] VITALS: TEMP 97.1
--- NOTE | 2020-09-07 14:07 | P.PCN ---
Date of Procedure: 09/07/20 Surgeon: Maliha Potter Pathology: none sent Condition: stable Disposition: PACU Description of Procedure: Procedure=1-lumbar puncture . Preoperative diagnoses= rule out cancer metastases to the intrathecal space Postoperative diagnosis= same as above Anesthesia= IV sedation with 2 mg of Versed and local lidocaine infiltration 1% 2 mL for skin and subcu infiltration. Condition= stable. Complications=none. Indication for the procedure: procedure risk and benefits and alternatives discussed with the patient and she was agreeable to proceeding with it. Description of the procedure=the patient was brought into the procedure room and placed in the prone position , monitors applied, the back prepped with chlorhexidine , skin was localized with 1% lidocaine, then 22-gauge 5" quinckie Needle was advanced slowly at L5-S1 interlaminar space to get access to the intrathecal space. Fluoroscopy was used for needle guidance due to the patient's morbid obesity and history of multiple back surgeries. The needle bevel turned 180 before entering the thecal sac to decrease the risk of postdural puncture headache. Cerebrospinal fluid was clear with no heme. Two attempts were needed. .A total of 6 mL of clear cerebrospinal fluid were collected in 4 different tubes, the needle removed, Band-Aid applied , patient tolerated the procedure well without any complications. Further management as per her neurologist.
[2020-09-07] MEDS ORDERED: LIDOCAINE 1% INJ 10MG/ML (20 ML MDV) ONE (14:10)
[2020-09-07] MEDS ORDERED: DEXAMETHASONE SOD PHOSPHATE 10 MG/ML 1 ML VIAL ONE (14:10)
[2020-09-07] MEDS ORDERED: fentaNYL (PF) 50 MCG/ML 2 ML AMP ONE (14:10)
[2020-09-07] MEDS ORDERED: IOPAMIDOL M200 10 ML VIAL ONE (14:10)
[2020-09-07] MEDS ORDERED: MIDAZOLAM 2 MG/2 ML VIAL ONE (14:10)
--- NOTE | 2020-09-07 14:33 | P.PCN ---
Date of Procedure: 09/07/20 Surgeon: Maliha Potter Pathology: none sent Condition: stable Disposition: PACU Description of Procedure: PREOPERATIVE DIAGNOSIS: Lumbar radiculopathy POSTOPERATIVE DIAGNOSIS: Lumbar radiculopathy PROCEDURE 1. Transforaminal epidural steroid injection under fluoroscopic guidance at left L3-4 level . 2. Lumbar epidurogram. SURGEON: Maliha Potter MD ANESTHESIA: Local with 1% lidocaine; IV sedation with Versed and fentanyl. EBL: Minimal PROCEDURE INDICATION: The patient with low back pain and radiculopathy symptoms unresponsive to conservative treatment. PROCEDURE DESCRIPTION / TECHNIQUE: The patient was seen and identified in the preoperative area. Risks, benefits, complications, and alternatives were discussed with the patient. The patient agreed to proceed with the procedure and signed the consent. IV was started, and vital signs were stable. Patient was taken to the OR and time out was completed. The patient was placed in the prone position on procedure table and a pillow was placed under the abdomen to reduce lumbar lordosis. The lumbosacral area was prepped and draped in the usual sterile fashion. Critical pause was taken. Vital signs were closely monitored during the procedure. Conscious sedation was used during the procedure to decrease patients anxiety. The vertebral body of the lumbar vertebra L3 was squared off by tilting the C-arm cephalad then the C-arm was tilted to the oblique position and the target point was at the 6 o'clock position of the pedicle of L3 then skin and deeper tissues were localized with 1% lidocaine. Subsequently, a 22-gauge 3.5- inch spinal needle was advanced under a tunneled view fluoroscopic guidance just underneath the chin of the Suleman dog at the . Under lateral fluoroscopy, the needle was then advanced to the middle of the upper one third of the foramen between( L3-4).Pt felt brief parasthesia in left leg ,which resolved after withdrawing the needle by few millimetrs. After negative aspiration of CSF and blood and with no paresthesias, 1 mL of omnipaque contrast dye was injected excellent epidurogram and outlining of the L3 nerve root was identified. Subsequently, 2 mL of block solution containing 10 mg of Decadron and 1 mL of Lidocaine 1% PF was injected. Needle was removed intact . At the end of the procedure, skin was cleansed, and bandages were applied. COMPLICATIONS: None COMMENTS: DISPOSITION / PLANS: The patient was placed in a supine position and transferred to the recovery area in a stable condition for observation. There was no evidence of lower extremity motor or sensory deficit after the procedure. Patient was discharged from the recovery room after meeting discharge criteria. Home discharge instructions were given to the patient by the staff.
[2020-09-07] MEDS ORDERED: IV FLUID CONTINUATION 500 ML IV ONE (14:35)
[2020-09-07 14:37] VITALS: RESP 20
--- NOTE | 2020-09-07 14:50 | FL ---
Fluoroscopy History: TRANSFORAMINAL EPI INJ Transforaminal epidural injection. 18 sec fl. 2 images sent.
[2020-09-07 15:05] VITALS: BP 133/83; PULSE 58
[2020-09-07] MEDS ORDERED: KETOROLAC 15 MG/ML 1 ML VIAL ONE (15:06)
== END 2020-09-07 15:57 | disposition home or self-care (01) ==
LOC: ORPAIN 13:24
PROVIDERS: ATTEND Anesthesiology
DX: M54.16 Radiculopathy, lumbar region (principal); Z88.0 Allergy status to penicillin
CPT/HCPCS: 64483; J2250; J1100; J2001; J3010; J1885; Q9966; 99152

== ENCOUNTER → 2020-09-24 | Outpatient (CLI) | payer MEDICARE ==
[~2020-09-24] MED LIST changes: -LACTATED RINGERS 1,000 ML IV SCH; +REGADENOSON 0.4 MG/5 ML SYRINGE IV PRN
--- NOTE | 2020-09-24 16:29 | P.STRESS ---
- Stress Test Note Stress Test Results/Findings: Exam Performed: NM stress lexiscan cardiolite Exam Date: 09/24/20 Reason for Exam: Pre Surgery Height: 5 ft 8 in Weight: 92.986 kg Protocol: Lexiscan Stage: na Duration of Exercise: na Resting Heart Rate: 56 Resting Blood Pressure: 129/73 Maximum Achieved Heart Rate: 77 Maximum Achieved Blood Pressure: 129/73 85% PMHR: 128 100% PMHR: 151 METS: na Technologist Comment: Stress Test Results/Findings: At baseline EKG showed normal sinus rhythm, normal axis, no significant ST or T- wave abnormalities. Patient recieved IV infusion of Lexiscan 0.4mg and at peak infusion EKG showed rare PVCs, no significant change from baseline. Conclusions: 1. Normal EKG response to Lexiscan infusion 2. Nuclear imaging to be reported separately.
--- NOTE | 2020-09-24 16:57 | NM ---
EXAMINATION TYPE: NM stress lexiscan cardiolite DATE OF EXAM: 09/24/2020 COMPARISON: NONE HISTORY: Dyspnea on exertion TECHNIQUE: After the intravenous administration of 9.8 mCi Tc 99m Sestamibi - Cardiolite resting SPE CT images acquired 55 minutes post injection. At peak stress 24 mCi Tc 99m Sestamibi - Stress images obtained 35 minutes post injection The patient was stressed with 0.4mg Lexiscan. FINDINGS: No fixed defects are evident No reversible stress defects on Spect images Wall motion is normal Ejection fraction is calculated to be 70 %. IMPRESSION: 1. No stress-induced ischemic change.
== END | disposition home or self-care (01) ==
LOC: RADNMMAIN 07:44
PROVIDERS: ATTEND Internal Medicine
DX: R06.00 Dyspnea, unspecified (principal)
CPT/HCPCS: 93017; 78452; A9500; J2785

== ENCOUNTER → 2020-10-01 | Outpatient (CLI) | payer MEDICARE ==
--- NOTE | 2020-10-01 14:23 | XR ---
EXAMINATION TYPE: XR chest 2V DATE OF EXAM: 10/01/2020 COMPARISON: Chest x-ray April 14, 2014 HISTORY: Presurgical. TECHNIQUE: Frontal and lateral views of the chest are obtained. FINDINGS: There is no suspicious new focal air space opacity, pleural effusion, or pneumothorax seen . The cardiac silhouette size is stable and within normal limits. Mild multilevel spurring in the th oracic spine. Surgical changes right humeral head redemonstrated. IMPRESSION: No acute cardiopulmonary process.
== END | disposition home or self-care (01) ==
LOC: RADXRMAIN 14:01
PROVIDERS: ATTEND Specialist
DX: M47.816 Spondylosis without myelopathy or radiculopathy, lumbar region (principal); M48.061 Spinal stenosis, lumbar region without neurogenic claudication; M48.062 Spinal stenosis, lumbar region with neurogenic claudication; M54.16 Radiculopathy, lumbar region
CPT/HCPCS: 71046

== ENCOUNTER → 2020-10-11 | Outpatient (CLI) | payer MEDICARE | END | disposition home or self-care (01) | LOC: LABWHC1 13:20 | PROVIDERS: ATTEND Specialist | DX: M47.816 Spondylosis without myelopathy or radiculopathy, lumbar region (principal); M48.061 Spinal stenosis, lumbar region without neurogenic claudication; M48.062 Spinal stenosis, lumbar region with neurogenic claudication; M54.16 Radiculopathy, lumbar region | CPT/HCPCS: U0003; C9803 ==

== ENCOUNTER → 2021-04-14 | Outpatient (CLI) | payer MEDICARE ==
--- NOTE | 2021-04-14 13:23 | XR ---
EXAMINATION TYPE: XR Hip Complete LT DATE OF EXAM: 04/14/2021 COMPARISON: None HISTORY: Left hip pain x2 months TECHNIQUE: 2 view left hip FINDINGS: Femoral head articulates with the acetabulum. Joint space is preserved. No acute fracture o r dislocation is evident. Vascular calcification is noted. IMPRESSION: 1. No acute osseous abnormality left hip.
== END | disposition home or self-care (01) ==
LOC: RADXRMAIN 10:11
PROVIDERS: ATTEND Internal Medicine
DX: M25.552 Pain in left hip (principal)
CPT/HCPCS: 73502

== ENCOUNTER → 2022-03-01 | Outpatient (CLI) | payer MEDICARE ==
--- NOTE | 2022-03-01 11:55 | US ---
EXAMINATION TYPE: US liver DATE OF EXAM: 03/01/2022 COMPARISON: 10/30 CT CLINICAL HISTORY: R47.9 ABNORMAL SERUM ENZYME LEVEL, UNSPECIFIED. TECHNIQUE: Multiple sonographic images of the right upper quadrant are obtained. FINDINGS: EXAM MEASUREMENTS: Liver Length: 17.1 cm Gallbladder Wall: 0.2 cm CBD: 0.6 cm Right Kidney: 10.9 x 4.1 x 4.5 cm [employer] NOTES:some exam limitations due to overlying bowel gas Pancreas: Obscured by bowel gas Liver: heterogeneous and attenuating, upper limits in size , no suspicious masses. Gallbladder: wnl Evidence for sonographic Peres's sign: no CBD: wnl Right Kidney: small round echogenic [id number] mass at the lower pole otherwise wnl IMPRESSION: 1. Heterogenous liver likely secondary to hepatocellular disease. 2. Nonobstructing right renal calculus versus prominent renal sinus fat.
== END | disposition home or self-care (01) ==
LOC: RADUSWWP 08:22
PROVIDERS: ATTEND Internal Medicine
DX: K76.89 Other specified diseases of liver (principal); R74.9 Abnormal serum enzyme level, unspecified
CPT/HCPCS: 76705

== ENCOUNTER → 2023-07-31 | Outpatient (CLI) | payer MEDICARE ==
--- NOTE | 2023-08-02 18:56 | MR ---
EXAMINATION TYPE: MR cervical spine wo con DATE OF EXAM: 07/31/2023 COMPARISON: None HISTORY: Neck pain CONTRAST: Performed utilizing mL intravenous gadolinium contrast. TECHNIQUE: Multiplanar multiecho imaging on a 3.0 Karla magnet is performed through the cervical spin e. FINDINGS: The craniovertebral junction is normal. Vertebral body alignment is normal. T1-T2: Disc bulge is present with right paracentral moderate thecal sac compression. No cord contact is evident. No spinal canal stenosis present. C7-T1: Small subligamentous disc herniation is mild anterior thecal sac compression. No cord contact or spinal canal stenosis. Uncovertebral joint hypertrophy is severe bilateral foraminal stenosis C6-7: There is a grade 1 retrolisthesis of C6 posterior on C7. There is loss of disc height at this l evel. Disc uncovering is present. This is in the central left paracentral region and has moderate ant erior thecal sac impression. Cord contact and cord deformity is present. AP spinal canal stenosis is present 0.7 cm. Severe bilateral foraminal stenosis from uncovertebral joint hypertrophy is present. C5-6: Grade 1 retrolisthesis may be present of C5 posterior on C6. There is loss of disc height at th is level Disc uncovering and disc bulging has moderate anterior thecal sac compression. This is cord contact. Some cord flattening may be present. Uncovertebral joint hypertrophy is severe bilateral for aminal stenosis. C4-5: Minimal disc bulges anterior thecal sac contact. No cord contact or spinal canal stenosis is pr esent. There is loss of disc height at this level. No spinal canal stenosis or neural foraminal steno sis is present. C3-4: Broad-based disc bulge is moderate anterior thecal sac compression. Greater to the left paracen tral region. This comes in close approximation spinal cord. No cord contact or cord deformity is evid ent. Left foraminal stenosis is present.. C2-3: Minimal disc bulge is present with anterior thecal sac contact. No cord contact or spinal canal stenosis. No spinal canal stenosis or neural foraminal stenosis is present. IMPRESSION: 1. Retrolisthesis of C5 on C6 and C6 on C7 with disc uncovering has cord contact and cord deformity. 2. Spinal canal stenosis is present at C6-7 level. 3. Multilevel uncovertebral joint hypertrophy contributing to severe foraminal stenosis. 4. Degenerative disc changes with loss of disc height greatest at C4-5 through C6-7. 5. An anterior listhesis of C6 anteriorly on C7 with disc uncovering is present
--- NOTE | 2023-08-04 22:03 | MR ---
EXAMINATION TYPE: MR lumbar spine wo/w con DATE OF EXAM: 07/31/2023 COMPARISON: 07/09/2020 HISTORY: Low back pain and leg weakness x3 years, Hx back fusion L5/S1 2013, L4/L5 fusion 2019, CONTRAST: 0 mL intravenous Gadavist. TECHNIQUE: Multiplanar, multisequence images of the lumbar spine were acquired. FINDINGS: Pedicle screws are present L4-5. Modic type I changes may be present L3-4. Disc space narr owing is present at L3-4. L5-S1: There is limitation of this level due to susceptibility artifact. No obvious stenosis No signi ficant disc bulge or disc herniation. No spinal canal stenosis. No foraminal stenosis. L4-L5: Mild broad-based disc bulge is present with anterior thecal sac contact. No AP spinal canal st enosis is present. No spinal canal stenosis. No foraminal stenosis. L3-L4: Broad-based disc bulge is moderate anterior thecal sac compression. Facet hypertrophy is prese nt contributing to spinal canal stenosis. Pedicle screws have susceptibility artifact. Moderate nenita inal stenosis is present. L2-L3: Broad-based disc bulge is mild anterior thecal sac compression. Facet hypertrophy and ligament um flavum laxity are contributing to spinal canal narrowing. Moderate to severe foraminal stenosis i s present. L1-L2: No significant disc bulge or disc herniation. No spinal canal stenosis. No foraminal stenosi s. T12-L1: No significant disc bulge or disc herniation. No spinal canal stenosis. No foraminal stenos is. Post contrast imaging is performed. No suspicious enhancement is evident. IMPRESSION: 1. Spinal canal stenosis due to facet hypertrophy, ligamentum flavum laxity and disc bulging L4-5 and to a milder degree L3-4.
== END | disposition home or self-care (01) ==
LOC: RADMRIMAIN 14:00
PROVIDERS: ATTEND Psychiatry & Neurology Neurology
DX: M43.12 Spondylolisthesis, cervical region (principal); M47.812 Spondylosis without myelopathy or radiculopathy, cervical region; M99.71 Connective tissue and disc stenosis of intervertebral foramina of cervical region; G95.89 Other specified diseases of spinal cord; M51.36 Other intervertebral disc degeneration, lumbar region; M48.061 Spinal stenosis, lumbar region without neurogenic claudication
CPT/HCPCS: 72141; 72158; A9585

== ENCOUNTER → 2023-11-23 | Outpatient (CLI) | payer MEDICARE ==
--- NOTE | 2023-11-23 14:35 | XR ---
EXAMINATION TYPE: XR cervical spine limited DATE OF EXAM: 11/23/2023 CLINICAL HISTORY: pain TECHNIQUE: 3 views of the cervical spine are submitted. COMPARISON: None. FINDINGS: There is satisfactory in alignment without evidence of acute fracture or dislocation. The pre-vertebral soft tissue appears within normal limits. ACDF changes at C5-6 and C6-7. Moderate mult ilevel degenerative changes seen at the remaining levels. The C1-C2 articulation is unremarkable on t he open mouth view. IMPRESSION: No acute fracture or dislocation is seen in the cervical spine. [facility], , 11/23/2023 2:33 PM
== END | disposition home or self-care (01) ==
LOC: RADXRMAIN 13:14
PROVIDERS: ATTEND Specialist
DX: M50.022 Cervical disc disorder at C5-C6 level with myelopathy (principal)
CPT/HCPCS: 72040

== ENCOUNTER → 2023-11-30 | Outpatient (CLI) | payer MEDICARE ==
--- NOTE | 2023-11-30 15:26 | US ---
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 FINDINGS: EXAM MEASUREMENTS: RIGHT: Peak Systolic Velocity (PSV) cm/sec ----- Right CCA: 67.7 ----- Right ICA: 51.2 ----- Right ECA: 82.3 ICA/CCA ratio: 0.76 RIGHT: End Diastole cm/sec ----- Right CCA: 17.3 ----- Right ICA: 18.4 ----- Right ECA: 12.6 LEFT: Peak Systolic Velocity (PSV) cm/sec ----- Left CCA: 81.7 ----- Left ICA: 61.5 ----- Left ECA: 75.5 ICA/CCA ratio: 0.75 LEFT: End Diastole cm/sec ----- Left CCA: 14.7 ----- Left ICA: 17.9 ----- Left ECA: 10.5 VERTEBRALS (direction of flow): Right Vertebral: Antegrade Left Vertebral: Antegrade Rhythm: Normal NETWORK APPLICATIONS SPECIALIST NOTES: No significant velocity elevations IMPRESSION: Right: Less than 50% stenosis of the carotid bifurcation. Normal (no stenosis)=ICA PSV < 125 cm/s: ra windy < 2.0: ICA EDV<40 cm/s. Left: Less than 50% stenosis of the carotid bifurcation. Normal (no stenosis)=ICA PSV < 125 cm/s: rat io < 2.0: ICA EDV<40 cm/s. Criteria for Assigning % of Stenosis / Diameter reduction (Estimation based on the indirect measurements of the internal carotid artery velocities (ICA PSV). 1. Normal (no stenosis)=ICA PSV < 125 cm/s: ratio < 2.0: ICA EDV<40 cm/s. 2. Less than 50% stenosis=ICA PSV < 125 cm/s: ratio < 2.0: ICA EDV<40 cm/s. 3. 50 to 69% stenosis=ICA PSV of 125 to 230 cm/s: ration 2.0 ? 4.0: ICA EDV 40-100 cm/s. 4. Greater than 70% stenosis to near occlusion= ICA PSV > 230 cm/s: ratio > 4.0: ICA EDV > 100 cm/s. 5. Near occlusion= ICA PSV velocities may be low or undetectable: variable ratio and ICA EDV. 6. Total occlusion=unable to detect flow. [facility], , 11/30/2023 3:24 PM
--- NOTE | 2023-11-30 17:34 | CA ---
Transthoracic Echo Report Name: Alan Reina Age: 73 Gender: M : 1950 Exam Date: 11/30/2023 15:34 Exam Location: [facility] Ht (in): 67 Wt (lb): 210 Ordering Physician: Genet Beltrán MD Attending/Referring Phys: Vehicle Monitor Technician Laura Issa RDCS Procedure CPT: Indications: I34.0 Cardiac Hx: Technical Quality: Fair Contrast 1: Total Dose (mL): Contrast 2: Total Dose (mL): MEASUREMENTS (Male / Female) Normal Values 2D ECHO LV Diastolic Diameter PLAX 4.9 cm 4.2 - 5.9 / 3.9 - 5.3 cm LV Systolic Diameter PLAX 3.3 cm IVS Diastolic Thickness 1.2 cm 0.6 - 1.0 / 0.6 - 0.9 cm LVPW Diastolic Thickness 1.2 cm 0.6 - 1.0 / 0.6 - 0.9 cm LV Relative Wall Thickness 0.5 RV Internal Dim ED PLAX 1.8 cm LA Systolic Diameter LX 5.2 cm 3.0 - 4.0 / 2.7 - 3.8 cm LV Diastolic Volume MOD BP 93.2 cm??? 67 - 155 / 56 - 104 cm??? LV Systolic Volume MOD BP 32.3 cm??? 22 - 58 / 19 - 49 cm??? LV Ejection Fraction MOD BP 65.3 % >= 55 % LV Cardiac Index MOD BP 1863.6 cm???/min???m??? LV Diastolic Volume MOD 4C 91.4 cm??? LV Systolic Volume MOD 4C 34.2 cm??? LV Ejection Fraction MOD 4C 62.6 % LV Cardiac Index MOD 4C 1751.9 cm???/min???m??? LV Diastolic Length 4C 8.5 cm LV Systolic Length 4C 6.7 cm LV Diastolic Volume MOD 2C 92.7 cm??? LV Systolic Volume MOD 2C 30.2 cm??? LV Ejection Fraction MOD 2C 67.4 % LV Cardiac Index MOD 2C 1912.5 cm???/min???m??? LV Diastolic Length 2C 8.3 cm LV Systolic Length 2C 7.0 cm LA Volume 91.5 cm??? 18 - 58 / 22 - 52 cm??? LA Volume Index 42.4 cm???/m??? 16 - 28 cm???/m??? M-MODE Aortic Root Diameter MM 3.8 cm LA Systolic Diameter MM 4.3 cm LA Ao Ratio MM 1.1 AV Cusp Separation MM 2.3 cm DOPPLER AI Peak Velocity 447.6 cm/s AI Peak Gradient 80.1 mmHg AI Pressure Half Time 852.4 ms LVOT Peak Velocity 99.1 cm/s LVOT Peak Gradient 3.9 mmHg LVOT Velocity Time Integral 23.7 cm MV Area PHT 3.4 cm??? Mitral E Point Velocity 65.7 cm/s Mitral A Point Velocity 89.3 cm/s Mitral E to A Ratio 0.7 MV Deceleration Time 225.3 ms TR Peak Velocity 230.7 cm/s TR Peak Gradient 21.3 mmHg Right Ventricular Systolic Press 25.9 mmHg FINDINGS Left Ventricle Left ventricular ejection fraction is estimated at 55-60 %. Mildly increased septal wall thickness. Normal left ventricular systolic function with no obvious regional wall motion abnormalities. Left ventricular cavity size normal. Right Ventricle Normal right ventricular size and function. Right ventricular systolic pressure within normal limits. Right Atrium Mild right atrial dilatation. Left Atrium Mildly increased left atrial area. Mitral Valve Structurally normal mitral valve. Trace mitral regurgitation. No mitral stenosis. Aortic Valve Trileaflet aortic valve. Trace aortic regurgitation. No aortic stenosis. Tricuspid Valve Structurally normal tricuspid valve. Trace tricuspid regurgitation. No tricuspid stenosis. Pulmonic Valve Structurally normal pulmonic valve. Trace pulmonic regurgitation. No pulmonic stenosis. Pericardium No pericardial or pleural effusion. Aorta Mild aortic dilatation at the level of the sinuses of valsalva (root). CONCLUSIONS Left ventricular ejection fraction 55-60% Mild increased left ventricular wall thickness Trace mitral regurgitation Trace tricuspid regurgitation RVSP 26 Previewed by: Dr. Shayne Leavitt DO (Electronically Signed) Final Date: 30 November 2023 17:33
== END | disposition home or self-care (01) ==
LOC: RADUSWWP 14:36
PROVIDERS: ATTEND Internal Medicine
DX: I65.23 Occlusion and stenosis of bilateral carotid arteries (principal); I34.0 Nonrheumatic mitral (valve) insufficiency; I36.1 Nonrheumatic tricuspid (valve) insufficiency
CPT/HCPCS: 93306; 93880

== ENCOUNTER → 2023-12-17 | Outpatient (CLI) | payer MEDICARE ==
--- NOTE | 2023-12-17 12:39 | XR ---
EXAMINATION TYPE: XR lumbar spine 2 or 3V DATE OF EXAM: 12/17/2023 12:34 PM COMPARISON: None. CLINICAL INDICATION: Male, 73 years old with history of M43.26, M47.816, M48.061, M54.16, Z98.1, foll ow-up for lower back surgery 2 weeks prior TECHNIQUE: XR lumbar spine 2 or 3V view(s) obtained. FINDINGS: There are 5 lumbar-type vertebral bodies. L1-L3 pedicles are intact. L4 and L5 pedicles have pedicle screws and fixation rods. Disc spaces are present L2-3 L3-4. A fixation screw is present L5-S1. Spondylosis is present. Vertebral body heights are preserved. Alignment appears preserved. IMPRESSION: 1. Post Surgical changes within the lumbar spine. 2. No acute osseous abnormality radiographically apparent. [facility], , 12/17/2023 12:36 PM
== END | disposition home or self-care (01) ==
LOC: RADXRMAIN 12:17
PROVIDERS: ATTEND Specialist
DX: M43.26 Fusion of spine, lumbar region (principal); M47.816 Spondylosis without myelopathy or radiculopathy, lumbar region; M48.061 Spinal stenosis, lumbar region without neurogenic claudication; M54.16 Radiculopathy, lumbar region; Z98.1 Arthrodesis status
CPT/HCPCS: 72100

== ENCOUNTER 2024-04-22 09:09 | Day surgery (SDC) | payer MEDICARE ==
[~2024-04-22 09:09] MED LIST changes: +LACTATED RINGERS 1,000 ML IV SCH; +LIDOCAINE 1% (10MG/ML) FOR IV START INTRADERMA PRN; -REGADENOSON 0.4 MG/5 ML SYRINGE IV PRN
[2024-04-22 09:39] VITALS: RESP 16; TEMP 97.5
[2024-04-22] MEDS: LACTATED RINGERS 1,000 ML IV ONE (09:45)
[2024-04-22] MEDS ORDERED: PROPOFOL 10 MG/ML 20 ML VIAL IV ONE (10:05)
--- NOTE | 2024-04-22 10:22 | P.PCN ---
Date of Procedure: 04/22/24 Procedure(s) Performed: BRIEF HISTORY: Patient is a 74-year-old pleasant white male scheduled for an elective colonoscopy as a part of screening for history of colon polyps. Last PROCEDURE PERFORMED: Colonoscopy with cold biopsy PREOPERATIVE DIAGNOSIS: Screening for history of colon polyps. IV sedation per Anesthesia. PROCEDURE: After informed consent was obtained, the patient, was brought into the endoscopy unit. IV sedation was administered by Anesthesia under continuous monitoring. Digital rectal examination was normal. Initially the Olympus CF-160 flexible video colonoscope was then inserted in the rectum, gradually advanced into the cecum without any difficulty. Careful examination was performed as the scope was gradually being withdrawn. Ileocecal valve and the appendiceal orifice were visualized and appeared normal. Prep was excellent. Mucosa of the cecum, ascending colon, transverse colon appeared normal. The descending colon there was a 4 mm sessile polyp removed by cold biopsy. Scattered left-sided diverticulosis seen. Rest of the, descending colon, sigmoid colon, and rectum appeared normal. Retroflexion was performed in the rectum and no lesions were seen. The patient tolerated the procedure well. IMPRESSION: 4 mm descending colon polyp status post cold biopsy Scattered left-sided diverticulosis RECOMMENDATIONS: Findings of this examination were discussed with the patient as well as his family. He was advised to follow-up with the biopsy is aspirated the biopsy reveals adenoma he can have repeat colonoscopy at age 81.
[2024-04-22 10:29] VITALS: BP 119/76; PULSE 96
== END 2024-04-22 11:06 ==
LOC: ORWHC2ENDO 09:09
PROVIDERS: ATTEND Internal Medicine Gastroenterology
DX: Z12.11 Encounter for screening for malignant neoplasm of colon (principal); D12.4 Benign neoplasm of descending colon; K57.30 Diverticulosis of large intestine without perforation or abscess without bleeding; I10 Essential (primary) hypertension; E78.5 Hyperlipidemia, unspecified; G47.33 Obstructive sleep apnea (adult) (pediatric); M19.90 Unspecified osteoarthritis, unspecified site; F41.9 Anxiety disorder, unspecified; K21.9 Gastro-esophageal reflux disease without esophagitis; Z87.891 Personal history of nicotine dependence; Z86.0100 Personal history of colon polyps, unspecified; Z99.89 Dependence on other enabling machines and devices; Z91.040 Latex allergy status; Z88.0 Allergy status to penicillin; Z79.899 Other long term (current) drug therapy
CPT/HCPCS: 88305; 45380; J2704